=== PATIENT | male | born 1955 | race Caucasian/White ===

== ENCOUNTER 2020-03-06 06:27 | Outpatient (REF) | payer MEDICARE, SELFPAY ==
[2020-03-06 07:24] LABS: MANUAL DIFF FLAG NO
[2020-03-06 07:25] LABS: Eosinophils Percent Auto 0.6 % (0-4); Hematocrit 43.5 % (42-52); Hemoglobin 14.8 g/dl (14.0-18.0); Imm Gran Abs Auto 0.02 X10*3/uL (0.00-0.03); Imm Gran Pct Auto 0.3 % (0.0-0.4); Lymphocytes Absolute Auto 1.4 X10*3/uL (1.2-4.9); Lymphocytes Percent Auto 19.6 % (20-40); Mean Corpuscular Hemoglobin 31.1 pg (27.0-33.0); Mean Corpuscular Volume 91.4 fL (80-98); Mean Platelet Volume 9.6 fL (9.4-12.4); Monocytes Absolute Auto 0.5 X10*3/uL (0.1-1.2); Monocytes Percent Auto 6.5 % (2-11); Neutrophils Absolute Auto 5.3 X10*3/uL (2.0-8.3); Platelet Count 220 X10*3/uL (160-400); Red Blood Count 4.76 X10*6/uL (4.60-5.80); Red Cell Distribution Width 12.2 % (11.0-16.0); White Blood Count 7.3 X10*3/uL (4.8-10.8)
[2020-03-06 07:48] LABS: Estimated Average Glucose 103 mg/dL; Hemoglobin A1c % 5.2 %
[2020-03-06 07:49] LABS: Alanine Aminotransferase 17 U/L (0-40); Albumin Level 4.1 g/dL (3.5-5.0); Alkaline Phosphatase 76 U/L (39-117); Anion Gap 12 (12-20); Aspartate Amino Transferase 16 U/L (5-37); Bilirubin Total 0.9 mg/dL (0.0-1.0); Blood Urea Nitrogen 17 mg/dL (9-16); Carbon Dioxide 27 mmol/L (22-29); Chloride 101 mmol/L (96-108); Cholesterol 207 mg/dL; Estimated Glomerular Filt Rate > 60; Glucose Fasting 99 mg/dL (60-99); HDL Cholesterol 66 mg/dL; LDL Cholesterol Calculated 126 mg/dl; Potassium 4.3 mmol/l (3.3-5.1); Sodium 136 mmol/L (135-145); Total Protein 6.5 g/dL (6.5-8.0); Triglycerides 77 mg/dL
[2020-03-06 08:09] LABS: Thyroid Stimulating Hormone 0.81 uIU/mL (0.32-4.0)
== END 2020-03-06 06:28 | disposition home or self-care (01) ==
LOC: HO.LAB 06:27
PROVIDERS: PCP Physician Assistant; Visit Provider Physician Assistant
DX: E78.9 Disorder of lipoprotein metabolism, unspecified (principal); I10 Essential (primary) hypertension; R73.09 Other abnormal glucose
CPT/HCPCS: 36415; 80053; 80061; 83036; 84443; 85025

== ENCOUNTER 2020-06-11 09:43 | Outpatient (REF) | payer MEDICARE, SELFPAY ==
[2020-06-11 11:14] LABS: MRSA Nasal PCR NEGATIVE (Negative); SA Nasal PCR NEGATIVE (Negative)
== END 2020-06-11 09:44 | disposition home or self-care (01) ==
LOC: HO.LAB 09:43
PROVIDERS: Visit Provider Physician Assistant
DX: Z01.818 Encounter for other preprocedural examination (principal)
CPT/HCPCS: 87640; 87641

== ENCOUNTER 2020-09-12 08:26 | Outpatient (REF) | payer MEDICARE, SELFPAY ==
[2020-09-12 10:07] LABS: MANUAL DIFF FLAG NO
[2020-09-12 10:17] LABS: Basophils Percent Auto 0.2 % (0-2); Eosinophils Percent Auto 0.5 % (0-4); Hematocrit 43.9 % (42-52); Hemoglobin 14.2 g/dl (14.0-18.0); Imm Gran Abs Auto 0.03 X10*3/uL (0.00-0.03); Imm Gran Pct Auto 0.5 % (0.0-0.4); Lymphocytes Absolute Auto 1.4 X10*3/uL (1.2-4.9); Lymphocytes Percent Auto 21.6 % (20-40); Mean Corpuscular HGB Conc 32.3 g/dl (31.0-36.0); Mean Corpuscular Hemoglobin 30.4 pg (27.0-33.0); Monocytes Absolute Auto 0.5 X10*3/uL (0.1-1.2); Monocytes Percent Auto 7.2 % (2-11); Neutrophils Absolute Auto 4.7 X10*3/uL (2.0-8.3); Platelet Count 216 X10*3/uL (160-400); Red Blood Count 4.67 X10*6/uL (4.60-5.80); Red Cell Distribution Width 12.5 % (11.0-16.0); White Blood Count 6.6 X10*3/uL (4.8-10.8)
[2020-09-12 10:23] LABS: Estimated Average Glucose 97 mg/dL
[2020-09-12 10:53] LABS: Alanine Aminotransferase 17 U/L (0-40); Albumin Level 4.2 g/dL (3.5-5.0); Alkaline Phosphatase 86 U/L (39-117); Anion Gap 14 (12-20); Aspartate Amino Transferase 20 U/L (5-37); Bilirubin Total 0.7 mg/dL (0.0-1.0); Blood Urea Nitrogen 18 mg/dL (9-16); Calcium 9.2 mg/dL (8.4-10.2); Carbon Dioxide 25 mmol/L (22-29); Chloride 102 mmol/L (96-108); Cholesterol 222 mg/dL; Estimated Glomerular Filt Rate > 60; Glucose Fasting 96 mg/dL (60-99); HDL Cholesterol 74 mg/dL; Iron 99 mcg/dL (45-160); LDL Cholesterol Calculated 135 mg/dl; Percent Iron Saturation 30 % (15-50); Potassium 4.5 mmol/L (3.3-5.1); Sodium 136 mmol/L (135-145); Total Iron Binding Capacity 329 mcg/dL (228-428); Total Protein 6.7 g/dL (6.5-8.0); Triglycerides 67 mg/dL; Unsaturated Iron Binding 230 ug/dL
[2020-09-12 10:55] LABS: Creatinine Urine 87.89 mg/dL; Microalbum/Creatinine Ratio Ur 21.6 ug/mg cr
[2020-09-12 11:16] LABS: Prostate Specific Antigen Scr 1.04 ng/mL (<0.05-4.0); TSH reflex Free T4 0.44 uIU/mL (0.32-4.0)
[2020-09-12 11:26] LABS: Folate 8.6 ng/mL (> or = 4.0); Vitamin B12 306 pg/mL (200-900)
== END 2020-09-12 08:27 | disposition home or self-care (01) ==
LOC: HO.LAB 08:26
PROVIDERS: PCP Physician Assistant; Visit Provider Physician Assistant
DX: Z12.5 Encounter for screening for malignant neoplasm of prostate (principal); I10 Essential (primary) hypertension; R53.83 Other fatigue; E78.2 Mixed hyperlipidemia; D50.9 Iron deficiency anemia, unspecified
CPT/HCPCS: 36415; 80053; 80061; 82043; 82607; 82746; 83036; 83540; 84153; 84443; 85025

== ENCOUNTER 2021-04-12 07:13 | Outpatient (REF) | payer MEDICARE, SELFPAY ==
[2021-04-12 08:19] LABS: Hematocrit 47.4 % (42.0-52.0); Hemoglobin 15.6 g/dl (14.0-18.0); Mean Corpuscular HGB Conc 32.9 g/dl (31.0-36.0); Mean Corpuscular Hemoglobin 30.7 pg (27.0-33.0); Mean Corpuscular Volume 93.3 fL (80.0-98.0); Platelet Count 232 X10*3/uL (160-400); Red Blood Count 5.08 X10*6/uL (4.60-5.80); Red Cell Distribution Width 12.1 % (11.0-16.0); White Blood Count 7.8 X10*3/uL (4.8-10.8)
[2021-04-12 08:43] LABS: Alanine Aminotransferase 14 U/L (0-40); Alkaline Phosphatase 82 U/L (39-117); Anion Gap 10 (12-20); Aspartate Amino Transferase 18 U/L (5-37); Bilirubin Total 0.8 mg/dL (0.0-1.0); Blood Urea Nitrogen 20 mg/dL (9-16); Calcium 9.4 mg/dL (8.4-10.2); Carbon Dioxide 30 mmol/L (22-29); Chloride 99 mmol/L (96-108); Cholesterol 197 mg/dL; Estimated Glomerular Filt Rate > 60; Glucose Fasting 108 mg/dL (60-99); Potassium 4.7 mmol/L (3.3-5.1); Sodium 134 mmol/L (135-145); Total Protein 6.8 g/dL (6.5-8.0); Triglycerides 60 mg/dL
[2021-04-12 08:49] LABS: HDL Cholesterol 66 mg/dL; LDL Cholesterol Calculated 119 mg/dl
[2021-04-12 09:07] LABS: Prostate Specific Antigen Scr 1.03 ng/mL (<0.05-4.0)
== END 2021-04-12 07:14 | disposition home or self-care (01) ==
LOC: HO.LAB 07:13
PROVIDERS: PCP Physician Assistant; Visit Provider Physician Assistant
DX: E78.2 Mixed hyperlipidemia (principal); I10 Essential (primary) hypertension; Z12.5 Encounter for screening for malignant neoplasm of prostate
CPT/HCPCS: 36415; 80053; 80061; 84153; 85027

== ENCOUNTER 2021-10-18 09:30 | Outpatient (REF) | payer MEDICARE, SELFPAY ==
[2021-10-18 09:59] LABS: Hematocrit 42.2 % (42.0-52.0); Mean Corpuscular HGB Conc 33.2 g/dl (31.0-36.0); Mean Corpuscular Hemoglobin 29.6 pg (27.0-33.0); Mean Corpuscular Volume 89.2 fL (80.0-98.0); Mean Platelet Volume 9.4 fL (9.4-12.4); Platelet Count 210 X10*3/uL (160-400); Red Blood Count 4.73 X10*6/uL (4.60-5.80); Red Cell Distribution Width 12.6 % (11.0-16.0); White Blood Count 7.6 X10*3/uL (4.8-10.8)
[2021-10-18 10:23] LABS: Alanine Aminotransferase 12 U/L (0-40); Albumin Level 4.2 g/dL (3.5-5.0); Alkaline Phosphatase 80 U/L (39-117); Anion Gap 14 (12-20); Aspartate Amino Transferase 16 U/L (5-37); Bilirubin Total 0.6 mg/dL (0.0-1.0); Blood Urea Nitrogen 20 mg/dL (9-16); Carbon Dioxide 25 mmol/L (22-29); Chloride 103 mmol/L (96-108); Cholesterol 191 mg/dL; Estimated Glomerular Filt Rate > 60; Glucose Fasting 104 mg/dL (60-99); HDL Cholesterol 60 mg/dL; LDL Cholesterol Calculated 119 mg/dl; Potassium 4.8 mmol/L (3.3-5.1); Sodium 137 mmol/L (135-145); Total Protein 6.9 g/dL (6.5-8.0); Triglycerides 62 mg/dL
[2021-10-18 10:31] LABS: Estimated Average Glucose 97 mg/dL
[2021-10-18 11:50] LABS: Creatinine Urine 266.45 mg/dL; Microalbum/Creatinine Ratio Ur 8.6 ug/mg cr
== END 2021-10-18 09:31 | disposition home or self-care (01) ==
LOC: HO.LAB 09:30
PROVIDERS: PCP Physician Assistant; Visit Provider Physician Assistant
DX: I10 Essential (primary) hypertension (principal); E78.2 Mixed hyperlipidemia; N40.1 Benign prostatic hyperplasia with lower urinary tract symptoms; R35.1 Nocturia; Z12.5 Encounter for screening for malignant neoplasm of prostate
CPT/HCPCS: 36415; 80053; 80061; 82043; 83036; 84153; 85027

== ENCOUNTER 2021-11-21 08:50 | Outpatient (REF) | payer MEDICARE, SELFPAY ==
--- NOTE | ~2021-11-21 | US_ITS ---
EXAMINATION: US EXTRACRANIAL CAROTID DUPLEX, BILATERAL CLINICAL INFORMATION: Left carotid bruit. Hypertension. Hyperlipidemia. COMPARISON: None TECHNIQUE: Real-time ultrasound and Doppler techniques (integrating B-mode 2-D vascular images, Doppler spectral analysis and color-flow Doppler imaging) were utilized to interrogate the extracranial carotid arteries, the vertebral arteries and proximal subclavian arteries bilaterally. The degree of stenosis is determined by criteria similar to NASCET. FINDINGS: Right Side: 1. There is mild atherosclerotic plaque seen in the bifurcation/proximal ICA region. 2. The common carotid artery PSV proximally is 110 cm/s and distally 90 cm/s. 3. The proximal internal carotid artery velocities are 86 cm/s systolic and 19 cm/s diastolic. 4. The proximal external carotid artery PSV is 127 cm/s. 5. The vertebral artery shows antegrade flow. 6. The subclavian artery waveforms are normal. Left Side: 1. There is mild atherosclerotic plaque seen in the bifurcation/proximal ICA region. 2. The common carotid artery PSV proximally is 127 cm/s and distally 79 cm/s. 3. The proximal internal carotid artery velocities are 79 cm/s systolic and 20 cm/s diastolic. 4. The proximal external carotid artery PSV is 75 cm/s. 5. The vertebral artery shows antegrade flow. 6. The subclavian artery waveforms are normal. US/US carotid duplex BI IMPRESSION: 1. RIGHT: Minimal, non-hemodynamically significant stenosis of the proximal right internal carotid artery corresponding to a 0-49% stenosis by velocity criteria. 2. LEFT: Minimal, non-hemodynamically significant stenosis of the proximal left internal carotid artery corresponding to a 0-49% stenosis by velocity criteria.
== END 2021-11-21 08:51 | disposition home or self-care (01) ==
LOC: HO.HMGCX 08:50
PROVIDERS: PCP Physician Assistant; Visit Provider Physician Assistant
DX: R09.89 Other specified symptoms and signs involving the circulatory and respiratory systems (principal)
CPT/HCPCS: 93880

== ENCOUNTER 2022-01-02 10:27 | Outpatient (REF) | payer MEDICARE, SELFPAY ==
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
== END 2022-01-02 10:28 | disposition home or self-care (01) ==
LOC: HO.SH 10:27
PROVIDERS: Visit Provider Physician Assistant
DX: Z01.118 Encounter for examination of ears and hearing with other abnormal findings (principal); H90.3 Sensorineural hearing loss, bilateral
CPT/HCPCS: 92557; 92570

== ENCOUNTER 2022-04-18 07:20 | Outpatient (REF) | payer MEDICARE, SELFPAY ==
[2022-04-18 08:27] LABS: Hematocrit 42.5 % (42.0-52.0); Hemoglobin 13.8 g/dl (14.0-18.0); Mean Corpuscular HGB Conc 32.5 g/dl (31.0-36.0); Mean Corpuscular Hemoglobin 29.9 pg (27.0-33.0); Mean Platelet Volume 10.1 fL (9.4-12.4); Platelet Count 282 X10*3/uL (160-400); Red Blood Count 4.62 X10*6/uL (4.60-5.80); Red Cell Distribution Width 13.2 % (11.0-16.0); White Blood Count 7.6 X10*3/uL (4.8-10.8)
[2022-04-18 09:00] LABS: Creatinine Urine 138.98 mg/dL; Microalbum/Creatinine Ratio Ur 10.7 ug/mg cr
[2022-04-18 09:07] LABS: Alanine Aminotransferase 14 U/L (0-40); Albumin Level 3.9 g/dL (3.5-5.0); Alkaline Phosphatase 79 U/L (39-117); Anion Gap 11 (12-20); Aspartate Amino Transferase 15 U/L (5-37); Bilirubin Total 0.6 mg/dL (0.0-1.0); Blood Urea Nitrogen 20 mg/dL (9-16); Carbon Dioxide 28 mmol/L (22-29); Chloride 104 mmol/L (96-108); Cholesterol 231 mg/dL; Estimated Glomerular Filt Rate > 60; Glucose Fasting 96 mg/dL (60-99); HDL Cholesterol 60 mg/dL; LDL Cholesterol Calculated 154 mg/dl; Potassium 4.3 mmol/L (3.3-5.1); Sodium 139 mmol/L (135-145); Total Protein 6.7 g/dL (6.5-8.0); Triglycerides 86 mg/dL
[2022-04-18 09:20] LABS: Prostate Specific Antigen Scr 1.72 ng/mL (<0.05-4.0); TSH reflex Free T4 1.19 uIU/mL (0.32-4.0)
== END 2022-04-18 07:21 | disposition home or self-care (01) ==
LOC: HO.LAB 07:20
PROVIDERS: PCP Physician Assistant; Visit Provider Physician Assistant
DX: I10 Essential (primary) hypertension (principal); E78.2 Mixed hyperlipidemia; N40.1 Benign prostatic hyperplasia with lower urinary tract symptoms; R35.1 Nocturia; Z12.5 Encounter for screening for malignant neoplasm of prostate
CPT/HCPCS: 36415; 80053; 80061; 82043; 84153; 84443; 85027

== ENCOUNTER 2022-11-28 06:51 | Outpatient (REF) | payer MEDICARE, SELFPAY ==
[2022-11-28 07:42] LABS: Hematocrit 45.5 % (42.0-52.0); Hemoglobin 14.8 g/dl (14.0-18.0); Mean Corpuscular HGB Conc 32.5 g/dl (31.0-36.0); Mean Corpuscular Hemoglobin 30.1 pg (27.0-33.0); Mean Corpuscular Volume 92.7 fL (80.0-98.0); Mean Platelet Volume 10.2 fL (9.4-12.4); Platelet Count 213 X10*3/uL (160-400); Red Blood Count 4.91 X10*6/uL (4.60-5.80); Red Cell Distribution Width 11.5 % (11.0-16.0); White Blood Count 6.2 X10*3/uL (4.8-10.8)
[2022-11-28 07:58] LABS: Alanine Aminotransferase 15 U/L (0-40); Albumin Level 4.1 g/dL (3.5-5.0); Alkaline Phosphatase 74 U/L (39-117); Anion Gap 14 (12-20); Aspartate Amino Transferase 20 U/L (5-37); Bilirubin Total 0.7 mg/dL (0.0-1.0); Blood Urea Nitrogen 16 mg/dL (9-16); Calcium 9.5 mg/dL (8.4-10.2); Carbon Dioxide 23 mmol/L (22-29); Chloride 105 mmol/L (96-108); Cholesterol 193 mg/dL (<200); Estimated Glomerular Filt Rate > 60; Glucose Fasting 101 mg/dL (60-99); HDL Cholesterol 68 mg/dL (>40); LDL Cholesterol Calculated 110 mg/dL (<100); Potassium 4.2 mmol/L (3.3-5.1); Sodium 138 mmol/L (135-145); Total Protein 6.9 g/dL (6.5-8.0); Triglycerides 79 mg/dL (<150)
== END 2022-11-28 06:52 | disposition home or self-care (01) ==
LOC: HO.LAB 06:51
PROVIDERS: PCP Physician Assistant; Visit Provider Physician Assistant
DX: I10 Essential (primary) hypertension (principal); E78.2 Mixed hyperlipidemia
CPT/HCPCS: 36415; 80053; 80061; 85027

== ENCOUNTER 2022-12-03 09:07 | Outpatient (AMB) | payer MEDICARE, SELFPAY ==
--- NOTE | 2022-12-03 09:08 | MHC.PC.OV ---
Vital Signs 12/03/22 09:10 Height 5 ft 7 in Weight 170 lb 8 oz BMI 26.7 BP 120/70 Blood Pressure Location Lt brachial Position Sitting Pulse 78 Pulse Source Pulse Oximeter Pulse Oximetry (%) 98 Oxygen Delivery Method Room Air Intake Visit Reasons: Annual Exam Intake Note: Patient is here today for a physical. 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: Not Required per policy Accompanied by: Self / Same As Patient Allergies ROMAIN INHIBITORS Allergy (Unknown, Uncoded 12/03/22 09:44) COUGH Medication List - Last Reconciled 12/03/22 by Brenden Ledesma PA-C losartan 25 mg PO DAILY sildenafil 100 mg PO DAILY 10 days Tobacco use date assessed: 12/03/22 Fall risk assessment: No Falls in past year Last assessed Fall Risk: 12/03/22 Dental Screening Dental Screen Date: 12/03/22 Did you have a dental visit in the last 12 months?: Yes Did you have a dental problem in the last 6 months where you did not have access to dental care?: No Was dental information given to patient?: Patient has dentist HPI Annual Exam HPI Details Sameer is a 67 y/o M here today for follow-up visit ? Pmhx HTN , HLD, overweight, knee osteoarthritis Concerns--> has upcoming left shoulder rotator cuff surgery December 24. ? .. ? HTN: Does monitor his blood pressure at home, Denies any headaches or CP as of late. Today BP acceptable. Has noted some weight gain and patient promises to work on getting more physically active and decreasing weight. ? .. ? Borderline hypercholesterolemia:? Most recent lipid panel showing much improved total cholesterol and LDL. Has been working on reducing his high cholesterol foods in being more physically active. ? Colonoscopy: done in 2016- repeat 10 years Vaccines: Up-to-date with COVID vaccine, pneumonia vaccine she shingles vaccine and tetanus vaccine Laboratory Tests 04/18/22 11/28/22 11/28/22 07:24 07:03 07:03 Hgb 14.8 Creatinine 0.98 Fasting Glucose 101 H Cholesterol 231 193 LDL Cholesterol, C alc 154 110 H PFSH Surgical History History of bilateral cataract extraction History of knee surgery History of thumb surgery Family History Father Esophageal cancer Mother Breast cancer Social History (Updated 12/03/22 @ 09:48 by Brenden Ledesma PA-C) Housing: House Alcohol intake: current Alcohol intake frequency: a few times a week Alcohol type: beer Patient Tobacco Use Status: Never used Tobacco e-Cigarette/Vaping Use: Never Used Second Hand Smoke Exposure: No service: No Current occupational status: employed and retired 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 Sonny Sorensen, Cris Salazar, Bill Billingsley and colleagues, with an educational olga from [employer]. Review of Systems Const Denies body aches, Denies chills, Denies excessive sweating, Denies fatigue, Denies fever(s) and Denies headache(s) Eyes Denies blurry vision ENT Denies dysphagia, Denies vertigo, Denies dizziness, Denies headache(s), Denies hearing loss and Denies tinnitus Card Denies chest pain, Denies chest pain with activity, Denies syncope, Denies irregular heart rhythm and Denies dyspnea Resp Denies chest congestion, Denies cough, Denies hemoptysis, Denies dyspnea and Denies wheezing GI Denies abdominal pain, Denies melena, Denies hematochezia, Denies coffee ground emesis, Denies dysphagia, Denies diarrhea, Denies nausea and Denies vomiting Denies difficulty urinating, Denies dysuria, Denies urinary frequency, Denies urinary hesitancy and Denies urinary urgency Musc Denies arthralgias, Denies limited range of motion, Denies muscle cramps and Denies muscle weakness Skin/Breast Denies rash and Denies skin ulcer Neuro Denies Abnormal speech present, Denies confusion, Denies vertigo, Denies dizziness, Denies syncope, Denies headache(s), Denies memory loss and Denies seizure-like activity Psych Denies anxiety, Denies confusion, Denies depression, Denies memory loss, Denies panic attacks and Denies paranoia Endo Denies excessive sweating, Denies fatigue, Denies flushing, Denies polydipsia and Denies polyuria Aller/Immun Denies wheezing Physical exam (Primary Care) Vital Signs: Last Vital Signs Pulse 78 12/03/22 09:10 BP 120/70 12/03/22 09:10 Pulse Ox 98 12/03/22 09:10 Oxygen Delivery Method Room Air 12/03/22 09:10 BMI result Body Mass Index 26.7 Tobacco/Smoking Status: Tobacco use Status Tobacco use date assessed 12/03/22 12/03/22 09:13 Patient Tobacco Use Status Never used Tobacco 12/03/22 09:13 e-Cigarette/Vaping Use Never Used 12/03/22 09:13 Thrive Assessment: Date of Thrive Assessment Date Thrive assessed 06/11/22 12/03/22 09:13 Const General: cooperative, comfortable, no acute distress, alert and awake; No confusion Orientation/consciousness: oriented to person, oriented to place, patient oriented x3 and No confusion HENMT Head: Yes normocephalic Ears: external ears normal and TM's normal bilaterally Face and sinus: No sinus tenderness Mouth: Normal oral and palatal mucosa present and tongue normal Teeth and gingiva: dentition normal and gingiva normal Throat: Yes posterior oropharynx normal, Yes tonsils normal and Yes uvula midline Eyes Conjunctivae: conjunctivae normal Sclerae: sclerae normal Pupils: Equal, round and reactive pupils present EOM: EOMs intact bilaterally Direct Ophthalmoscopy: No no photophobia Neck Neck: Yes no lymphadenopathy, No tender and Yes no JVD Thyroid: Thyroid normal Carotids: no bruits Chest Chest palpation & inspection: no tenderness Resp Effort & Inspection: normal respiratory effort, no audible wheezes, not labored and no stridor Auscultation: no crackles, no rales, no rhonchi and no wheezes Cardio Jugular venous distension: no JVD Rate: regular rate, not bradycardic and not tachycardic Rhythm: regular rhythm Bruits: no carotid bruits Peripheral pulses: Peripheral pulses 2+ throughout GI Inspection: Yes normal to inspection, No abdominal wall ecchymosis and No visible herniation Palpation (GI): Soft to palpation, nontender, no guarding, not rigid and No hepatosplenomegaly present Auscultation: normoactive bowel sounds General: Yes no CVA tenderness Back/Spine/Pelvis Back: no CVA tenderness and No back tenderness Cervical Spine: cervical ROM normal Thoracic/Lumbar Spine: thoracic and lumbar spine normal to inspection, straight leg raise negative bilaterally, No thoraco-lumbar ROM limited and No lumbar spinal tenderness Skin Lesions: no lesions Rashes: no rashes Wounds: no wounds Neuro General: oriented to person, oriented to place, patient oriented x3, CN's II-XI intact bilaterally and No confusion Cranial nerves: Yes Equal, round and reactive pupils present and Yes Normal accommodation reflex present Cognition (Neuro): normal cognition Speech: No Abnormal speech present Gait exam (Neuro): Normal gait present Motor exam (neuro): 5/5 motor strength present throughout Extrem Right upper extremity: full ROM; no cyanosis Left upper extremity: full ROM; no cyanosis Right lower extremity: no edema Left lower extremity: no edema Psych Appearance: grossly normal Mental Status: mental status grossly normal Affect: normal affect Attitude: cooperative Thought process: Normal thought process present Assessment and Plan Assessment & Plan (1) Annual physical exam: Code(s): Z00.00 - Encounter for general adult medical examination without abnormal findings (2) HTN (hypertension): Code(s): I10 - Essential (primary) hypertension Qualifiers: Hypertension type: essential hypertension Qualified Code(s): I10 - Essential (primary) hypertension Plan: Patient's blood pressure acceptable today in office. Will continues current dose of losartan with goal blood pressure to remain below 140/90 (3) HLD (hyperlipidemia): Code(s): E78.5 - Hyperlipidemia, unspecified Qualifiers: Hyperlipidemia type: mixed hyperlipidemia Qualified Code(s): E78.2 - Mixed hyperlipidemia Plan: Patient's most recent lipid panel much improved she showing appropriate total cholesterol and LDL. He will continue working on lifestyle modifications of his diet to reduce his cholesterol. (4) Biceps tendinopathy: Code(s): M67.929 - Unspecified disorder of synovium and tendon, unspecified upper arm Qualifiers: Laterality: right Qualified Code(s): M67.921 - Unspecified disorder of synovium and tendon, right upper arm Plan: As per HPI patient is due for left shoulder tendon repair in November 2022. Orders: Orders Comprehensive [place]. Panel Fast 6 Months I10 - Essential (primary) hypertension Lipid Panel 6 Months E78.2 - Mixed hyperlipidemia Prostate Specific Antigen Scr 6 Months E78.2 - Mixed hyperlipidemia, Z12.5 - Encounter for screening for malignant neoplasm of prostate Microalbumin, Random (w Creat) 6 Months I10 - Essential (primary) hypertension Complete Blood Count no Diff 6 Months E78.2 - Mixed hyperlipidemia Medications: Refilled sildenafil administer 30 minutes to 4 hours before activity 100 mg PO DAILY 10 days 10 tabs 1RF sexual activity N52.8 - Other male erectile dysfunction Coding Level of Care Code Est Pt Prev Care >65y(16734) Diagnoses Annual physical exam Z00.00 HTN (hypertension) I10 Hypertension type: essential hypertension HLD (hyperlipidemia) E78.2 Hyperlipidemia type: mixed hyperlipidemia Biceps tendinopathy M67.921 Laterality: right
[2022-12-03 09:10] VITALS: BP 120/70; PULSE 78; O2SAT 98; BMI 26.7
== END 2022-12-03 10:00 | disposition home or self-care (01) ==
PROVIDERS: PCP Physician Assistant; Visit Provider Physician Assistant
DX: Z00.00 Encounter for general adult medical examination without abnormal findings (principal); I10 Essential (primary) hypertension; M67.921 Unspecified disorder of synovium and tendon, right upper arm
CPT/HCPCS: 99397

== ENCOUNTER 2023-05-27 08:25 | Outpatient (REF) | payer MEDICARE, SELFPAY ==
[2023-05-27 09:16] LABS: Hematocrit 44.6 % (42.0-52.0); Hemoglobin 14.6 g/dl (14.0-18.0); Mean Corpuscular HGB Conc 32.7 g/dl (31.0-36.0); Mean Corpuscular Hemoglobin 29.9 pg (27.0-33.0); Mean Corpuscular Volume 91.4 fL (80.0-98.0); Mean Platelet Volume 10.1 fL (9.4-12.4); Platelet Count 193 X10*3/uL (160-400); Red Blood Count 4.88 X10*6/uL (4.60-5.80); White Blood Count 7.2 X10*3/uL (4.8-10.8)
[2023-05-27 09:48] LABS: Alanine Aminotransferase 14 U/L (0-40); Alkaline Phosphatase 81 U/L (39-117); Anion Gap 13 (12-20); Aspartate Amino Transferase 18 U/L (5-37); Bilirubin Total 0.4 mg/dL (0.0-1.0); Blood Urea Nitrogen 22 mg/dL (9-16); Calcium 9.2 mg/dL (8.4-10.2); Carbon Dioxide 26 mmol/L (22-29); Chloride 105 mmol/L (96-108); Cholesterol 194 mg/dL (<200); Estimated Glomerular Filt Rate > 60; Glucose Fasting 100 mg/dL (60-99); HDL Cholesterol 54 mg/dL (>40); LDL Cholesterol Calculated 125 mg/dL (<100); Potassium 4.4 mmol/L (3.3-5.1); Sodium 140 mmol/L (135-145); Total Protein 6.9 g/dL (6.5-8.0); Triglycerides 77 mg/dL (<150)
[2023-05-27 09:50] LABS: Creatinine Urine 471.57 mg/dL; Microalbum/Creatinine Ratio Ur 12.2 ug/mg cr (<30)
== END 2023-05-27 08:26 | disposition home or self-care (01) ==
LOC: HO.LAB 08:25
PROVIDERS: PCP Physician Assistant; Visit Provider Physician Assistant
DX: E78.2 Mixed hyperlipidemia (principal); I10 Essential (primary) hypertension; Z12.5 Encounter for screening for malignant neoplasm of prostate
CPT/HCPCS: 36415; 80053; 80061; 82043; 82570; 84153; 85027

== ENCOUNTER 2023-06-03 07:35 | Outpatient (AMB) | payer MEDICARE, SELFPAY ==
[2023-06-03 07:49] VITALS: BP 120/78; BMI 26.5
--- NOTE | 2023-06-03 07:49 | A.OFFPC_ITS ---
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 Accompanied by: Self / Same As Patient Allergies ROMAIN INHIBITORS Allergy (Unknown, Uncoded 06/03/23 07:59) COUGH Medication List - Last Reconciled 06/03/23 by Brenden Ledesma PA-C losartan 25 mg PO DAILY sildenafil 100 mg PO DAILY 10 days Tobacco use date assessed: 06/03/23 Fall risk assessment: No Falls in past year Last assessed Fall Risk: 06/03/23 Dental Screening Dental Screen Date: 06/03/23 Did you have a dental visit in the last 12 months?: Yes Did you have a dental problem in the last 6 months where you did not have access to dental care?: No Was dental information given to patient?: Patient has dentist HPI 6mth f/u HPI Details Sameer is a 67 y/o M here today for follow-up visit ? Pmhx HTN , HLD, overweight. Concerns--> has been recovering left rotator cuff surgery. Has regained a lot of strength and range of motion. ? .. ? HTN: Does monitor his blood pressure at home, Denies any headaches or CP as of late. Today BP acceptable. He is still trying to get his weight down to the mid 160s. Continues to walk 3-4 miles a day. ? .. ? Borderline hypercholesterolemia:? Most recent lipid panel showing acceptable total cholesterol and LDL. Has been working on reducing his high cholesterol foods in being more physically active. Laboratory Tests 04/18/22 11/28/22 05/27/23 07:24 07:03 08:42 Hgb 14.6 Creatinine 1.17 Fasting Glucose 100 H LDL Cholesterol, C alc 110 H 125 H PSA Screen 1.72 Urine Microalbumin 05/27/23 05/27/23 08:42 08:42 Hgb Creatinine Fasting Glucose LDL Cholesterol, C alc PSA Screen 1.50 Urine Microalbumin 58.0 PFSH Surgical History History of rotator cuff surgery History of knee surgery History of bilateral cataract extraction History of thumb surgery Family History Father Esophageal cancer Mother Breast cancer Social History Housing: House Alcohol intake: current Alcohol intake frequency: a few times a week Alcohol type: beer Patient Tobacco Use Status: Never used Tobacco e-Cigarette/Vaping Use: Never Used Second Hand Smoke Exposure: No service: No Current occupational status: employed and retired 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 1. Little interest or pleasure in doing things: not at all 2. Feeling down, depressed, or hopeless: not at all 3. Trouble falling or staying asleep, or sleeping too much: not at all 4. Feeling tired or having little energy: not at all 5. Poor appetite or overeating: not at all 6. Feeling bad about yourself - or that you are a failure or have let yourself or your family down: not at all 7. Trouble concentrating on things, such as reading the newspaper or watching television: not at all 8. Moving or speaking so slowly that other people could have noticed. Or the opposite - being so fidgety or restless that you have been moving around a lot more than usual: not at all 9. Thoughts that you would be better off or of hurting yourself in some way: not at all Total score: 0 Depression Screening Interpretation: Negative Depression Screening Done: Yes 17908 - PHQ-9 Billing: Yes Source: Developed by Drs. Sonny Sorensen, Cris Salazar, Bill Billingsley and colleagues, with an educational olga from [employer]. Thrive Questionnaire Date Thrive assessed: 06/03/23 I am a: Patient What is your living situation today?: I have a steady place to live Within the past 12 months, did the food you bought not last and you didn't have the money to get more?: Never true Within the past 12 months, did you worry whether your food would run out before you got money to buy more?: Never true Do you have trouble paying for medicines?: No Do you have trouble getting transportation to medical appointments?: No Do you have trouble paying your heating and electricity bill?: No Do you have trouble taking care of your child, family member or friend?: No Do you have trouble with day-to-day activities such as bathing, preparing meals, shopping, managing finances, etc.?: No Are you currently unemployed and looking for a job?: No Are you interested in more education?: No Please select the resources that you would like help with: None Currently or been in a relationship where the following occur: no concerns reported THRIVE Score: 0 AUDIT C Alcohol Use Questionnaire (AUDIT-C) 1. How often do you have a drink containing alcohol?: 2-3 times a week 2. How many drinks containing alcohol do you have on a typical day when you are drinking?: 1 or 2 3. How often do you have six or more drinks on one occasion?: Never Total Score: 3 Score Reviewed/Action Taken: Yes BATSHEVA-7 AMB Questionnaire BATSHEVA-7 Date BATSHEVA - 7 assessed: 06/03/23 Feeling nervous, anxious, or on edge: 0 = Not at all Not being able to stop or control worryin = Not at all Worrying too much about different things: 0 = Not at all Trouble relaxin = Not at all Being so restless that it is hard to sit still: 0 = Not at all Becoming easily annoyed or irritable: 0 = Not at all Feeling afraid as if something awful might happen: 0 = Not at all Total BATSHEVA-7 score (0-4 normal; 5-9 mild; 10-14 moderate; 15-21 severe): 0 Source: Developed by Drs. Sonny Sorensen, Cris Salazar, Bill Billingsley and colleagues, with an educational olga from [employer]. BATSHEVA-7 Assessment Billing BATSHEVA-7 Assessment Tool: BATSHEVA-7 Assessment 40610 Review of Systems Const Denies headache(s) Eyes Denies loss of vision ENT Denies vertigo, Denies dizziness, Denies headache(s) and Denies sore throat Card Denies chest pain, Denies leg edema and Denies lightheadedness Resp Denies cough, Denies hemoptysis and Denies wheezing GI Denies abdominal pain, Denies melena, Denies constipation, Denies diarrhea and Denies vomiting Denies dysuria, Denies urinary frequency and Denies urinary urgency Musc Denies arthralgias, Denies joint swelling, Denies numbness and Denies tingling Neuro Denies Abnormal speech present, Denies behavioral changes, Denies vertigo, Denies dizziness, Denies headache(s), Denies loss of vision, Denies memory loss, Denies numbness and Denies tingling Psych Denies anxiety, Denies behavioral changes, Denies depression, Denies memory loss and Denies panic attacks Cameron/Lymph Denies easy bleeding and Denies easy bruising Aller/Immun Denies wheezing Physical exam (Primary Care) Vital Signs: Last Vital Signs BP 120/78 06/03/23 07:49 BMI result Body Mass Index 26.5 Tobacco/Smoking Status: Tobacco use Status Tobacco use date assessed 06/03/23 06/03/23 07:56 Patient Tobacco Use Status Never used Tobacco 06/03/23 07:56 e-Cigarette/Vaping Use Never Used 06/03/23 07:56 PHQ-9: PHQ-9 Score PHQ-9: Total score 0 06/03/23 08:15 Depression Screening Interpretation: Negative Thrive Assessment: Date of Thrive Assessment Date Thrive assessed 06/03/23 06/03/23 07:56 Currently or been in a relationship where the following occur: no concerns reported Const General: healthy appearing, no acute distress, alert and awake Nutritional Appearance: well nourished Orientation/consciousness: oriented to person, oriented to place and oriented to time HENMT Ears: TM's normal bilaterally General nose exam: Normal nasal mucous membranes and turbinates present Eyes Conjunctivae: conjunctivae normal Sclerae: sclerae normal Pupils: Equal, round and reactive pupils present Neck Neck: Yes no lymphadenopathy and Yes no JVD Thyroid: Thyroid normal Carotids: no bruits Resp Effort & Inspection: normal respiratory effort and not tachypneic Auscultation: no crackles, no rales, no rhonchi and no wheezes Cardio Rate: regular rate Rhythm: regular rhythm Heart sounds: no murmurs and normal S1 and S2 GI Palpation (GI): Soft to palpation, nontender, no hepatomegaly and no splenome jenny Auscultation: normal bowel sounds Skin General skin exam: no rashes or lesions noted and dry skin Neuro General: oriented to person, oriented to place and oriented to time Cranial nerves: Yes Equal, round and reactive pupils present Speech: No Abnormal speech present Gait exam (Neuro): Normal gait present Motor exam (neuro): no tremor noted Extrem Right upper extremity: full ROM Left upper extremity: full ROM Right lower extremity: full ROM; no edema Left lower extremity: full ROM; no edema Psych Mental Status: mental status grossly normal Speech and movement: Normal speech and movement present Affect: normal affect Attitude: cooperative Thought process: Normal thought process present Assessment and Plan Assessment & Plan (1) HTN (hypertension): Code(s): I10 - Essential (primary) hypertension Qualifiers: Hypertension type: essential hypertension Qualified Code(s): I10 - Essential (primary) hypertension Plan: Patient's blood pressure acceptable today in office. Will continues current dose of losartan with goal blood pressure to remain below 140/90 Noted slight microalbuminuria. Will recheck in 6 months. (2) HLD (hyperlipidemia): Code(s): E78.5 - Hyperlipidemia, unspecified Qualifiers: Hyperlipidemia type: mixed hyperlipidemia Qualified Code(s): E78.2 - Mixed hyperlipidemia Plan: Patient's most recent lipid panel much improved she showing appropriate total cholesterol and LDL. He will continue working on lifestyle modifications of his diet to reduce his cholesterol. (3) Microalbuminuria: Code(s): R80.9 - Proteinuria, unspecified Plan: Recent microalbuminuria noted to be elevated. Will recheck in 6 months. Advised to monitor blood pressure Orders: Orders Microalbumin, Random (w Creat) 6 Months R80.9 - Proteinuria, unspecified Complete Blood Count no Diff 6 Months I10 - Essential (primary) hypertension Lipid Panel 6 Months E78.2 - Mixed hyperlipidemia Comprehensive [place]. Panel Fast 6 Months I10 - Essential (primary) hypertension Coding Level of Care Code Est Pt Level 4 (99076) Diagnoses Essential hypertension I10 Hypertension type: essential hypertension Mixed hyperlipidemia E78.2 Hyperlipidemia type: mixed hyperlipidemia Microalbuminuria R80.9 Additional Codes BATSHEVA-7 Assessment Billing - BATSHEVA-7 Assessment Tool: BATSHEVA-7 Assessment 10782 ([id number])
== END 2023-06-03 08:14 | disposition home or self-care (01) ==
PROVIDERS: PCP Physician Assistant; Visit Provider Physician Assistant
DX: I10 Essential (primary) hypertension (principal); E78.2 Mixed hyperlipidemia; R80.9 Proteinuria, unspecified
CPT/HCPCS: 99214

== ENCOUNTER 2023-12-03 07:00 | Outpatient (REF) | payer MEDICARE, SELFPAY ==
[2023-12-03 07:57] LABS: Hematocrit 43.1 % (42.0-52.0); Hemoglobin 14.6 g/dl (14.0-18.0); Mean Corpuscular HGB Conc 33.9 g/dl (31.0-36.0); Mean Corpuscular Hemoglobin 30.9 pg (27.0-33.0); Mean Corpuscular Volume 91.3 fL (80.0-98.0); Mean Platelet Volume 9.8 fL (9.4-12.4); Platelet Count 219 X10*3/uL (160-400); Red Blood Count 4.72 X10*6/uL (4.60-5.80); Red Cell Distribution Width 12.3 % (11.0-16.0); White Blood Count 6.7 X10*3/uL (4.8-10.8)
[2023-12-03 08:08] LABS: Alanine Aminotransferase 12 U/L (0-40); Alkaline Phosphatase 72 U/L (39-117); Anion Gap 13 (12-20); Aspartate Amino Transferase 16 U/L (5-37); Bilirubin Total 0.6 mg/dL (0.0-1.0); Blood Urea Nitrogen 15 mg/dL (9-16); Calcium 9.6 mg/dL (8.4-10.2); Carbon Dioxide 26 mmol/L (22-29); Chloride 104 mmol/L (96-108); Cholesterol 207 mg/dL (<200); Estimated Glomerular Filt Rate > 60; Glucose Fasting 106 mg/dL (60-99); HDL Cholesterol 67 mg/dL (>40); LDL Cholesterol Calculated 130 mg/dL (<100); Potassium 4.5 mmol/L (3.3-5.1); Sodium 138 mmol/L (135-145); Total Protein 6.9 g/dL (6.5-8.0); Triglycerides 53 mg/dL (<150)
[2023-12-03 09:13] LABS: Creatinine Urine 125.05 mg/dL; Microalbum/Creatinine Ratio Ur 11.1 ug/mg cr (<30)
== END 2023-12-03 07:01 | disposition home or self-care (01) ==
LOC: HO.LAB 07:00
PROVIDERS: PCP Physician Assistant; Visit Provider Physician Assistant
DX: I10 Essential (primary) hypertension (principal); R80.9 Proteinuria, unspecified; E78.2 Mixed hyperlipidemia
CPT/HCPCS: 36415; 80053; 80061; 82043; 82570; 85027

== ENCOUNTER 2023-12-10 07:44 | Outpatient (AMB) | payer MEDICARE, SELFPAY ==
--- NOTE | 2023-12-10 07:54 | MHC.PC.OV ---
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 Accompanied by: Self / Same As Patient Allergies ROMAIN INHIBITORS Allergy (Unknown, Uncoded 12/10/23 08:06) COUGH Medication List - Last Reconciled 12/10/23 by Brenden Ledesma PA-C losartan 25 mg PO DAILY sildenafil 100 mg PO DAILY 10 days Tobacco use date assessed: 06/03/23 Fall risk assessment: No Falls in past year Last assessed Fall Risk: 12/10/23 Dental Screening Dental Screen Date: 12/10/23 Did you have a dental visit in the last 12 months?: Yes Did you have a dental problem in the last 6 months where you did not have access to dental care?: No Was dental information given to patient?: Patient has dentist HPI PE HPI Details Sameer is a 68 y/o M here today for routine annual physical ? Pmhx HTN , HLD,. 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 .. ? HTN: Does monitor his blood pressure at home, Denies any headaches or CP as of late. Today BP acceptable. He is still trying to get his weight down to the mid 160s. Continues to walk 3-4 miles a day. ? .. ? Borderline hypercholesterolemia:? Most recent lipid panel showing slightly elevated total cholesterol and LDL. He does admit to some dietary indiscretion Has been working on reducing his high cholesterol foods in being more physically active. Colonoscopy: done in 2016- repeat 10 years Vaccines: Up-to-date with COVID vaccine, pneumonia vaccine she shingles vaccine and tetanus vaccine, will be getting flu shot some Laboratory Tests 05/27/23 12/03/23 08:42 07:10 RBC 4.72 Hgb 14.6 Fasting Glucose 106 H Cholesterol 194 207 H LDL Cholesterol, C alc 125 H 130 H PSA Screen 1.50 Urine Microalbumin 58.0 14.0 PFSH Surgical History History of rotator cuff surgery History of knee surgery History of bilateral cataract extraction History of thumb surgery Family History Father Esophageal cancer Mother Breast cancer Social History Housing: House Alcohol intake: current Alcohol intake frequency: a few times a week Alcohol type: beer Patient Tobacco Use Status: Never used Tobacco e-Cigarette/Vaping Use: Never Used Second Hand Smoke Exposure: No service: No Current occupational status: employed and retired 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 1. Little interest or pleasure in doing things: not at all 2. Feeling down, depressed, or hopeless: not at all 3. Trouble falling or staying asleep, or sleeping too much: not at all 4. Feeling tired or having little energy: not at all 5. Poor appetite or overeating: not at all 6. Feeling bad about yourself - or that you are a failure or have let yourself or your family down: not at all 7. Trouble concentrating on things, such as reading the newspaper or watching television: not at all 8. Moving or speaking so slowly that other people could have noticed. Or the opposite - being so fidgety or restless that you have been moving around a lot more than usual: not at all 9. Thoughts that you would be better off or of hurting yourself in some way: not at all Total score: 0 Depression Screening Interpretation: Negative Depression Screening Done: Yes Source: Developed by Drs. Sonny Sorensen, Cris Salazar, Bill Billingsley and colleagues, with an educational olga from [employer]. Thrive Questionnaire Date Thrive assessed: 12/10/23 I am a: Patient What is your living situation today?: I have a steady place to live Within the past 12 months, did the food you bought not last and you didn't have the money to get more?: Never true Within the past 12 months, did you worry whether your food would run out before you got money to buy more?: Never true Do you have trouble paying for medicines?: No Do you have trouble getting transportation to medical appointments?: No Do you have trouble paying your heating and electricity bill?: No Do you have trouble taking care of your child, family member or friend?: No Do you have trouble with day-to-day activities such as bathing, preparing meals, shopping, managing finances, etc.?: No Are you currently unemployed and looking for a job?: No Are you interested in more education?: No Please select the resources that you would like help with: None Currently or been in a relationship where the following occur: No concerns reported THRIVE Score: 0 AUDIT C Alcohol Use Questionnaire (AUDIT-C) 1. How often do you have a drink containing alcohol?: 4 or more times a week 2. How many drinks containing alcohol do you have on a typical day when you are drinking?: 1 or 2 3. How often do you have six or more drinks on one occasion?: Never Total Score: 4 BATSHEVA-7 AMB Questionnaire BATSHEVA-7 Date BATSHEVA - 7 assessed: 12/10/23 Feeling nervous, anxious, or on edge: 0 = Not at all Not being able to stop or control worryin = Not at all Worrying too much about different things: 0 = Not at all Trouble relaxin = Not at all Being so restless that it is hard to sit still: 0 = Not at all Becoming easily annoyed or irritable: 0 = Not at all Feeling afraid as if something awful might happen: 0 = Not at all Total BATSHEVA-7 score (0-4 normal; 5-9 mild; 10-14 moderate; 15-21 severe): 0 Source: Developed by Drs. Sonny Sorensen, Cris Salazar, Bill Billingsley and colleagues, with an educational olga from [employer]. Review of Systems Const Denies body aches, Denies chills, Denies excessive sweating, Denies fatigue, Denies fever(s) and Denies headache(s) Eyes Denies blurry vision ENT Denies dysphagia, Denies vertigo, Denies dizziness, Denies headache(s), Denies hearing loss and Denies tinnitus Card Denies chest pain, Denies chest pain with activity, Denies syncope, Denies irregular heart rhythm and Denies dyspnea Resp Denies chest congestion, Denies cough, Denies hemoptysis, Denies dyspnea and Denies wheezing GI Denies abdominal pain, Denies melena, Denies hematochezia, Denies coffee ground emesis, Denies dysphagia, Denies diarrhea, Denies nausea and Denies vomiting Denies difficulty urinating, Denies dysuria, Denies urinary frequency, Denies urinary hesitancy and Denies urinary urgency Musc Denies arthralgias, Denies limited range of motion, Denies muscle cramps and Denies muscle weakness Skin/Breast Denies rash and Denies skin ulcer Neuro Denies Abnormal speech present, Denies confusion, Denies vertigo, Denies dizziness, Denies syncope, Denies headache(s), Denies memory loss and Denies seizure-like activity Psych Denies anxiety, Denies confusion, Denies depression, Denies memory loss, Denies panic attacks and Denies paranoia Endo Denies excessive sweating, Denies fatigue, Denies flushing, Denies polydipsia and Denies polyuria Aller/Immun Denies wheezing Physical exam (Primary Care) Vital Signs: Last Vital Signs Pulse 66 12/10/23 07:55 BP 116/86 12/10/23 07:55 Pulse Ox 99 12/10/23 07:55 Oxygen Delivery Method Room Air 12/10/23 07:55 BMI result Body Mass Index 26.5 Tobacco/Smoking Status: Tobacco use Status Tobacco use date assessed 06/03/23 12/10/23 07:55 Patient Tobacco Use Status Never used Tobacco 12/10/23 07:55 e-Cigarette/Vaping Use Never Used 12/10/23 07:55 PHQ-9: PHQ-9 Score PHQ-9: Total score 0 12/10/23 08:01 Depression Screening Interpretation: Negative Thrive Assessment: Date of Thrive Assessment Date Thrive assessed 12/10/23 12/10/23 08:01 Currently or been in a relationship where the following occur: No concerns reported Const General: cooperative, comfortable, no acute distress, alert and awake; No confusion Orientation/consciousness: oriented to person, oriented to place, patient oriented x3 and No confusion HENMT Head: Yes normocephalic Ears: external ears normal and TM's normal bilaterally Face and sinus: No sinus tenderness Mouth: Normal oral and palatal mucosa present and tongue normal Teeth and gingiva: dentition normal and gingiva normal Throat: Yes posterior oropharynx normal, Yes tonsils normal and Yes uvula midline Eyes Conjunctivae: conjunctivae normal Sclerae: sclerae normal Pupils: Equal, round and reactive pupils present EOM: EOMs intact bilaterally Direct Ophthalmoscopy: No no photophobia Neck Neck: Yes no lymphadenopathy, No tender and Yes no JVD Thyroid: Thyroid normal Carotids: no bruits Chest Chest palpation & inspection: no tenderness Resp Effort & Inspection: normal respiratory effort, no audible wheezes, not labored and no stridor Auscultation: no crackles, no rales, no rhonchi and no wheezes Cardio Jugular venous distension: no JVD Rate: regular rate, not bradycardic and not tachycardic Rhythm: regular rhythm Bruits: no carotid bruits Peripheral pulses: Peripheral pulses 2+ throughout GI Inspection: Yes normal to inspection, No abdominal wall ecchymosis and No visible herniation Palpation (GI): Soft to palpation, nontender, no guarding, not rigid and No hepatosplenomegaly present Auscultation: normoactive bowel sounds General: Yes no CVA tenderness Back/Spine/Pelvis Back: no CVA tenderness and No back tenderness Cervical Spine: cervical ROM normal Thoracic/Lumbar Spine: thoracic and lumbar spine normal to inspection, straight leg raise negative bilaterally, No thoraco-lumbar ROM limited and No lumbar spinal tenderness Skin Lesions: no lesions Rashes: no rashes Wounds: no wounds Neuro General: oriented to person, oriented to place, patient oriented x3, CN's II-XI intact bilaterally and No confusion Cranial nerves: Yes Equal, round and reactive pupils present and Yes Normal accommodation reflex present Cognition (Neuro): normal cognition Speech: No Abnormal speech present Gait exam (Neuro): Normal gait present Motor exam (neuro): 5/5 motor strength present throughout Extrem Right upper extremity: full ROM; no cyanosis Left upper extremity: full ROM; no cyanosis Right lower extremity: no edema Left lower extremity: no edema Psych Appearance: grossly normal Mental Status: mental status grossly normal Affect: normal affect Attitude: cooperative Thought process: Normal thought process present Assessment and Plan Assessment & Plan (1) Annual physical exam: Code(s): Z00.00 - Encounter for general adult medical examination without abnormal findings (2) HTN (hypertension): Code(s): I10 - Essential (primary) hypertension Qualifiers: Hypertension type: essential hypertension Qualified Code(s): I10 - Essential (primary) hypertension Plan: Patient's blood pressure acceptable today in office. Will continues current dose of losartan with goal blood pressure to remain below 140/90 Microalbuminuria has improved (3) HLD (hyperlipidemia): Code(s): E78.5 - Hyperlipidemia, unspecified Qualifiers: Hyperlipidemia type: mixed hyperlipidemia Qualified Code(s): E78.2 - Mixed hyperlipidemia Plan: Patient's most recent lipid panel showing borderline cholesterol. He will continue to make lifestyle and dietary modifications. Goal LDL is to be below 130. (4) Microalbuminuria: Code(s): R80.9 - Proteinuria, unspecified Plan: Has resolved Orders: Orders Comprehensive [place]. Panel Fast Today I10 - Essential (primary) hypertension Complete Blood Count no Diff Today I10 - Essential (primary) hypertension Prostate Specific Antigen Scr Today I10 - Essential (primary) hypertension, Z12.5 - Encounter for screening for malignant neoplasm of prostate Lipid Panel Today E78.2 - Mixed hyperlipidemia Microalbumin, Random (w Creat) Today I10 - Essential (primary) hypertension Medications: Refilled losartan 25 mg PO DAILY 90 tabs 3RF sildenafil administer 30 minutes to 4 hours before activity 100 mg PO DAILY 10 days 10 tabs 1RF sexual activity N52.8 - Other male erectile dysfunction Patient Instructions: Goal: Blood pressure to remain below 140/90, LDL to be below 130, total cholesterol to be below 200 Barriers: Adherence to physical activity and healthy eating habits Coding Level of Care Code Est Pt Prev Care >65y(43282) Diagnoses Annual physical exam Z00.00 Essential hypertension I10 Hypertension type: essential hypertension Mixed hyperlipidemia E78.2 Hyperlipidemia type: mixed hyperlipidemia Microalbuminuria R80.9
[2023-12-10 07:55] VITALS: BP 116/86; PULSE 66; O2SAT 99; BMI 26.5
== END 2023-12-10 08:26 | disposition home or self-care (01) ==
PROVIDERS: PCP Physician Assistant; Visit Provider Physician Assistant
DX: Z00.00 Encounter for general adult medical examination without abnormal findings (principal); I10 Essential (primary) hypertension; E78.2 Mixed hyperlipidemia; R80.9 Proteinuria, unspecified
CPT/HCPCS: 99397

== ENCOUNTER 2024-06-01 07:55 | Outpatient (REF) | payer MEDICARE, SELFPAY ==
--- OUTSIDE RECORDS SUMMARY | 2024-06-01 08:04 | XMS_ITS | Data Portability ---
Author Organization [facility] [address] [facility] Address [address] [place] [address] Care Team Providers Care Floor Polisher Name Role Phone ELIZABETH PFEIFFER Primary Care Provider Assessment No assessment recorded. Plan of Treatment Reminders Order Date Submit Date Provider Last Modified By Organization Details Last Modified Time Details Appointments None recorded. Lab None recorded. Referral None recorded. Procedures None recorded. Surgeries None recorded. Imaging None recorded. Medication Orders mupirocin 2 % topical ointment 2022 023 [facility] #[id number], [address] [place], [address], 11:50:55 Patient TargetsNo targets recorded. Patient Instructions Encounter Date Encounter Id Patient Instructions Last Modified By Organization Details Last Modified Time 04/09/2022 [id number] carpal tunnel syndrome: care instructions Not available 04/09/2022 14:39:57 . [email or web address] Not available 2022 15:46:18 10/22/2022 [id number] skin tears: care instructions Not available 10/22/2022 11:51:14 Reason for Referral None Reported. Problems Name Problem SNOMED Code Status Onset Date Resolution Date Notes Provider Name and Address Organization Details Recorded Time Hypertensive disorder 42879939 Active 2022 [facility] 14:17:55 Problem Notes None recorded. Medical Equipment None Reported. Allergies No known drug allergies Medications Name Sig Start Date Stop Date Status Note LastModified by Organization Details LastModified Time losartan 25 mg tablet Take 1 tablet every day by oral route. active Not Available Not Available No t Available mupirocin 2 % topical ointment Apply 1 application twice a day by topical route for 10 days. 2022 active Not Available Not Available Not Avai lable Vitals Date Recorded Body height Body mass index (BMI) Body weight Respiratory rate Oxygen saturation Oxygen saturation in Arterial blood by Pulse oximetry Heart rate Body temperature Systolic blood pressure Diastolic blood pressure Provider Name and Address Organization Details Last Updated DateTime 3 170.18 cm 25.4 kg/m2 79171.9 6 g 16 /min 100 % 100 % 72 /min 97.8 [degF] 148 mm[Hg] 87 mm[Hg] Mayelin Bloom PA - [facility] 3 11:13:19 Date Recorded Body height Body mass index (BMI) Body weight Oxygen saturation Oxygen saturation in Arterial blood by Pulse oximetry Pain severity - 0-10 verbal numeric rating [Score] - Reported Heart rate Respiratory rate Body temperature Systolic blood pressure Diastolic blood pressure Provider Name and Address Organization Details Last Updated DateTime 3 170.18 cm 25.5 kg/m2 06520.5 6 g 99 % 99 % 10 78 /min 18 /min 97.9 [degF] 148 mm[Hg] 76 mm[Hg] Shayy Craig PA - [facility] 3 14:20:07 Social History Question Answer Notes LastModified by [employer] Details LastModified Time Tobacco Smoking Status Never Smoker Shayy lou PA - [facility] 04/09/2022 14:18:04 What Is Your Level Of Alcohol Consumption? None Information not available 04/09/2022 Have You Had Direct Contact, Or Contact During Intimacy, With Monkeypox Rash, Scabs, Or Body Fluids From A Person With Monkeypox? No Information not available 04/09/2022 Do You Use Any Illicit Or Recreational Drugs? No Information not available 04/09/2022 Have You Recently Traveled Abroad? No Information not available 04/09/2022 Do You Or Have You Ever Used Any Other Forms Of Tobacco Or Nicotine? No Information not available 04/09/2022 Sex: Unknown Functional Status None recorded. Mental Status None recorded. Family History Relationship Description Onset Age of this Age Resolved Age Notes LastModified by Organization Details LastModified Time Father No current problems or disability Not available 04/09 14:17:57 Mother No current problems or disability Not available 04/09 14:17:57 Medical History No medical history recorded. Immunizations Vaccine Type Date Status Note Provider Nam e and Address Organization Details Recorded Time Influenza, MDCK, quadrivalent, PF 8 completed Mayelin Ruszala null, PA - [facility] 10/22/2022 11:11:15 Influenza, adjuvanted, quadrivalent, PF 1 completed Mayelin Ruszala null, PA - [facility] 10/22/2022 11:11:15 pneumococcal polysaccharide PPV23 0 completed Mayelin Ruszala null, PA - [facility] 10/22/2022 11:11:16 Tdap 8 completed Mayelin Ruszala null, PA - [facility] 10/22/2022 11:11:16 Tdap 8 completed Mayelin Ruszala null, PA - [facility] 10/22/2022 11:11:16 zoster live 7 completed Mayelin Ruszala null, PA - [facility] 10/22/2022 11:11:16 Influenza, high-dose, trivalent, PF 0 completed Mayelin Ruszala null, PA - [facility] 10/22/2022 11:11:16 Influenza, split virus, quadrivalent, PF 9 completed Mayelin Ruszala null, PA - [facility] 10/22/2022 11:11:16 Influenza, split virus, quadrivalent, PF 6 completed Mayelin Ruszala null, PA - [facility] 10/22/2022 11:11:16 COVID-19, mRNA, LNP-S, PF, 100 mcg/0.5mL dose or 50 mcg/0.25mL dose 1 completed Shayy Kiara null, PA - [facility] 04/09/2022 14:17:34 COVID-19, mRNA, LNP-S, bivalent, PF, 50 mcg/0.5 mL or 25mcg/0.25 mL dose 2 completed Shayy Kiara null, PA - [facility] 04/09/2022 14:17:34 COVID-19, mRNA, LNP-S, PF, 100 mcg/0.5mL dose or 50 mcg/0.25mL dose 1 completed Shayy Kiara null, PA - [facility] 04/09/2022 14:17:34 COVID-19, mRNA, LNP-S, PF, 100 mcg/0.5mL dose or 50 mcg/0.25mL dose 1 completed Shayy [place] null, PA - [facility] 04/09/2022 14:17:34 Influenza, high-dose, quadrivalent, PF 2 completed Shayy [place] null, PA - [facility] 04/09/2022 14:17:34 Past Encounters Encounter ID Performer Location Encounter Start Date Encounter Closed Date Diagnosis/Indication Diagnosis SNOMED-CT Code Diagnosis ICD10 Code Diagnosis Note [id number] [address] [place] [address] 09/27/2017 14:10:27 09/27/2017 15:04:35 [id number] Deondre Nicholson MD [address] [address] 04/09/2022 12:56:43 04/09/2022 14:42:19 Pain of left wrist [id number] 54272 M25.532 Unsure of cause of the pain but much improved during visit and after wearing brace. Discussed possibilit y of carpal tunnel syndrome and should follow up with Orthopedic .Take Ibuprofen 600mg every 6 hours as needed with food.Wear brace for the next 2-3 days [id number] Deondre Nicholson MD [address] [address] 10/22/2022 10:48:42 10/22/2022 11:54:31 Abrasion of skin of right forearm [id number] S50.811A . F/u for any increased swelling, redness, drainage, fever, or red streaks that travel up from the wound. Health Concerns Section Related Observation LastModified by Organization Detai ls LastModified Time None Recorded Concern Status LastModified by Organization Details LastModified Time None Recorded Advance Directives Directive None Recorded Payers Encounter Date Sequence Insurance Name Policy Number Policy Amor Covered Member ID Amor Member ID Guarantor Name 09/27/2017 1 [facility] [id number] Sameer Siddiqi [id number] Sameer Siddiqi 04/09/2022 1 [facility] [id number] Sameer Siddiqi [id number] Sameer Siddiqi 10/22/2022 [employer] Lashawn HannonRerecipe Bucky Sameer Siddiqi Notes Date Note Type Note Provider Name and Address Organization Details Recorded Time 04/09/2022 text/html Wrist/Hand Injur y UCReported bypatient.Associa quyen Symptoms:no redness; no ecchymosis; no fever Severity:severe Duration:1 days Hand Dominance:left Assistive devices:brace Pain was severe this morning, Wore brace all day and now pain is almost gone Deondre Nicholson MD [address] [place], [address], PA - [facility] 04/09/2022 15:46:33 10/22/2022 text/html Skin Redness UCReported bypatient.Locatio n:right arm Quality:not painful Severity:improvin g Onset:sudden onset Symptoms:no fever; no nausea; no vomiting; no swelling Deondre Nicholson MD [address] [place], [address], PA - [facility] 10/27/2022 08:58:28
[2024-06-01 08:17] LABS: Hematocrit 45.3 % (42.0-52.0); Hemoglobin 15.7 g/dl (14.0-18.0); Mean Corpuscular HGB Conc 34.7 g/dl (31.0-36.0); Mean Corpuscular Hemoglobin 30.4 pg (27.0-33.0); Mean Corpuscular Volume 87.6 fL (80.0-98.0); Mean Platelet Volume 9.3 fL (9.4-12.4); Platelet Count 235 X10*3/uL (160-400); Red Blood Count 5.17 X10*6/uL (4.60-5.80); Red Cell Distribution Width 12.1 % (11.0-16.0)
[2024-06-01 09:01] LABS: Alanine Aminotransferase 13 U/L (0-40); Albumin Level 4.3 g/dL (3.5-5.0); Alkaline Phosphatase 87 U/L (39-117); Anion Gap 15 (12-20); Aspartate Amino Transferase 21 U/L (5-37); Bilirubin Total 0.8 mg/dL (0.0-1.0); Blood Urea Nitrogen 22 mg/dL (9-16); Calcium 9.6 mg/dL (8.4-10.2); Carbon Dioxide 25 mmol/L (22-29); Chloride 106 mmol/L (96-108); Cholesterol 199 mg/dL (<200); Estimated Glomerular Filt Rate > 60; Glucose Fasting 96 mg/dL (60-99); HDL Cholesterol 63 mg/dL (>40); LDL Cholesterol Calculated 119 mg/dL (<100); Potassium 4.6 mmol/L (3.3-5.1); Sodium 141 mmol/L (135-145); Total Protein 7.7 g/dL (6.5-8.0); Triglycerides 89 mg/dL (<150)
[2024-06-01 09:17] LABS: Prostate Specific Antigen Scr 1.67 ng/mL (<0.05-4.0)
[2024-06-01 09:30] LABS: Creatinine Urine 213.23 mg/dL; Microalbum/Creatinine Ratio Ur 13.6 ug/mg cr (<30)
== END 2024-06-01 07:56 | disposition home or self-care (01) ==
LOC: HO.LAB 07:55
PROVIDERS: PCP Physician Assistant; Visit Provider Physician Assistant
DX: I10 Essential (primary) hypertension (principal); Z12.5 Encounter for screening for malignant neoplasm of prostate; E78.2 Mixed hyperlipidemia
CPT/HCPCS: 36415; 80053; 80061; 82043; 82570; 84153; 85027

== ENCOUNTER 2024-06-08 07:55 | Outpatient (AMB) | payer MEDICARE, SELFPAY ==
--- NOTE | 2024-06-08 07:57 | A.OFFPC_ITS ---
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 Accompanied by: Self / Same As Patient Allergies ROMAIN INHIBITORS Allergy (Unknown, Uncoded 06/08/24 08:09) COUGH Medication List - Last Reconciled 06/08/24 by Brenden Ledesma PA-C losartan 25 mg PO DAILY sildenafil 100 mg PO DAILY 10 days Tobacco use date assessed: 06/08/24 Fall risk assessment: No Falls in past year Last assessed Fall Risk: 06/08/24 Dental Screening Dental Screen Date: 06/08/24 Did you have a dental visit in the last 12 months?: Yes Did you have a dental problem in the last 6 months where you did not have access to dental care?: No Was dental information given to patient?: Patient has dentist HPI f/u HTN/ boderline high choles HPI Details Sameer is a 68 y/o M here today for a follow-up visit ? Pmhx HTN , HLD,. 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 Hand arthritis: He experiences significant hand arthritis, considering steroid injections to address the swelling and discomfort, exacerbated by ibuprofen for analgesia causing transient elevated blood pressure. He has upcoming appointment with his Orthopedics and usually gets cortisone injections which provide him excellent pain relief. ? .. ? HTN: Does monitor his blood pressure at home, Denies any headaches or CP as of late. Today BP slightly elevated. . ? .. ? Borderline hypercholesterolemia:? Most recent lipid panel showing slightly elevated total cholesterol and LDL. He does admit to some dietary indiscretion Has been working on reducing his high cholesterol foods in being more physically active. Laboratory Tests 12/03/23 06/01/24 06/01/24 07:10 08:02 08:07 RBC 5.17 Creatinine 1.09 Cholesterol 207 H 199 LDL Cholesterol, C alc 130 H 119 H PSA Screen 1.67 Urine Microalbumin 29.0 [facility] Surgical History History of rotator cuff surgery History of knee surgery History of bilateral cataract extraction History of thumb surgery Family History Father Esophageal cancer Mother Breast cancer Social History Housing: House Alcohol intake: current Alcohol intake frequency: a few times a week Alcohol type: beer Patient Tobacco Use Status: Never used Tobacco e-Cigarette/Vaping Use: Never Used Second Hand Smoke Exposure: No service: No Current occupational status: employed and retired 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 1. Little interest or pleasure in doing things: not at all 2. Feeling down, depressed, or hopeless: not at all 3. Trouble falling or staying asleep, or sleeping too much: not at all 4. Feeling tired or having little energy: not at all 5. Poor appetite or overeating: not at all 6. Feeling bad about yourself - or that you are a failure or have let yourself or your family down: not at all 7. Trouble concentrating on things, such as reading the newspaper or watching television: not at all 8. Moving or speaking so slowly that other people could have noticed. Or the opposite - being so fidgety or restless that you have been moving around a lot more than usual: not at all 9. Thoughts that you would be better off or of hurting yourself in some way: not at all Total score: 0 Depression Screening Interpretation: Negative Depression Screening Done: Yes 86970 - PHQ-9 Billing: Yes Source: Developed by Drs. Sonny Sorensen, Cris Salazar, Bill Billignsley and colleagues, with an educational olga from [employer]. Thrive Questionnaire Date Thrive assessed: 06/08/24 I am a: Patient What is your living situation today?: I have a steady place to live Within the past 12 months, did the food you bought not last and you didn't have the money to get more?: Never true Within the past 12 months, did you worry whether your food would run out before you got money to buy more?: Never true Do you have trouble paying for medicines?: No Do you have trouble getting transportation to medical appointments?: No Do you have trouble paying your heating and electricity bill?: No Do you have trouble taking care of your child, family member or friend?: No Do you have trouble with day-to-day activities such as bathing, preparing meals, shopping, managing finances, etc.?: No Are you currently unemployed and looking for a job?: No Are you interested in more education?: No Please select the resources that you would like help with: None Currently or been in a relationship where the following occur: No concerns reported THRIVE Score: 0 AUDIT C Alcohol Use Questionnaire (AUDIT-C) 1. How often do you have a drink containing alcohol?: 4 or more times a week 2. How many drinks containing alcohol do you have on a typical day when you are drinking?: 1 or 2 3. How often do you have six or more drinks on one occasion?: Never Total Score: 4 BATSHEVA-7 AMB Questionnaire BATSHEVA-7 Date BATSHEVA - 7 assessed: 06/08/24 Feeling nervous, anxious, or on edge: 0 = Not at all Not being able to stop or control worryin = Not at all Worrying too much about different things: 0 = Not at all Trouble relaxin = Not at all Being so restless that it is hard to sit still: 0 = Not at all Becoming easily annoyed or irritable: 0 = Not at all Feeling afraid as if something awful might happen: 0 = Not at all Total BATSHEVA-7 score (0-4 normal; 5-9 mild; 10-14 moderate; 15-21 severe): 0 Source: Developed by Drs. Sonny Sorensen, Cris Salazar, Bill Billingsley and colleagues, with an educational olga from [employer]. BATSHEVA-7 Assessment Billing BATSHEVA-7 Assessment Tool: BATSHEVA-7 Assessment 93462 Review of Systems Const Denies headache(s) Eyes Denies loss of vision ENT Denies vertigo, Denies dizziness, Denies headache(s) and Denies sore throat Card Denies chest pain, Denies leg edema and Denies lightheadedness Resp Denies cough, Denies hemoptysis and Denies wheezing GI Denies abdominal pain, Denies melena, Denies constipation, Denies diarrhea and Denies vomiting Denies dysuria, Denies urinary frequency and Denies urinary urgency Musc Denies arthralgias, Denies joint swelling, Denies numbness and Denies tingling Neuro Denies Abnormal speech present, Denies behavioral changes, Denies vertigo, Denies dizziness, Denies headache(s), Denies loss of vision, Denies memory loss, Denies numbness and Denies tingling Psych Denies anxiety, Denies behavioral changes, Denies depression, Denies memory loss and Denies panic attacks Cameron/Lymph Denies easy bleeding and Denies easy bruising Aller/Immun Denies wheezing Physical exam (Primary Care) Vital Signs: Last Vital Signs Pulse 69 06/08/24 07:58 BP 140/80 H 06/08/24 07:58 Pulse Ox 99 06/08/24 07:58 Oxygen Delivery Method Room Air 06/08/24 07:58 BMI result Body Mass Index 27.7 Tobacco/Smoking Status: Tobacco use Status Tobacco use date assessed 06/08/24 06/08/24 08:03 Patient Tobacco Use Status Never used Tobacco 06/08/24 08:03 e-Cigarette/Vaping Use Never Used 06/08/24 08:03 PHQ-9: PHQ-9 Score PHQ-9: Total score 0 06/08/24 08:03 Depression Screening Interpretation: Negative Thrive Assessment: Date of Thrive Assessment Date Thrive assessed 06/08/24 06/08/24 08:03 Currently or been in a relationship where the following occur: No concerns reported Const General: healthy appearing, no acute distress, alert and awake Nutritional Appearance: well nourished Orientation/consciousness: oriented to person, oriented to place and oriented to time HENMT Ears: TM's normal bilaterally General nose exam: Normal nasal mucous membranes and turbinates present Eyes Conjunctivae: conjunctivae normal Sclerae: sclerae normal Pupils: Equal, round and reactive pupils present Neck Neck: Yes no lymphadenopathy and Yes no JVD Thyroid: Thyroid normal Carotids: no bruits Resp Effort & Inspection: normal respiratory effort and not tachypneic Auscultation: no crackles, no rales, no rhonchi and no wheezes Cardio Rate: regular rate Rhythm: regular rhythm Heart sounds: no murmurs and normal S1 and S2 GI Palpation (GI): Soft to palpation, nontender, no hepatomegaly and no splenomegaly Auscultation: normal bowel sounds Skin General skin exam: no rashes or lesions noted and dry skin Neuro General: oriented to person, oriented to place and oriented to time Cranial nerves: Yes Equal, round and reactive pupils present Speech: No Abnormal speech present Gait exam (Neuro): Normal gait present Motor exam (neuro): no tremor noted Extrem Right upper extremity: full ROM Left upper extremity: full ROM Right lower extremity: full ROM; no edema Left lower extremity: full ROM; no edema Psych Mental Status: mental status grossly normal Speech and movement: Normal speech and movement present Affect: normal affect Attitude: cooperative Thought process: Normal thought process present Coding Level of Care Code Est Pt Level 4 (67492) Diagnoses Essential hypertension I10 Hypertension type: essential hypertension Mixed hyperlipidemia E78.2 Hyperlipidemia type: mixed hyperlipidemia Arthritis of both hands M19.041; M19.042 Additional Codes PHQ-9 - 64757 - PHQ-9 Billing: Yes ([id number]) BATSHEVA-7 Assessment Billing - BATSHEVA-7 Assessment Tool: BATSHEVA-7 Assessment 65645 ([id number]) Assessment & Plan Assessment & Plan (1) HTN (hypertension): Code(s): I10 - Essential (primary) hypertension Category: Medical Qualifiers: Hypertension type: essential hypertension Qualified Code(s): I10 - Essential (primary) hypertension Plan: Patient's blood pressure slightly elevated today in office. Has been using NSAID for his hand arthritis or lately which is likely driving his blood pressure up. He continues on losartan 25 mg with good effect on his blood pressure. Will continue to monitor his blood pressure and if consistently above 140/90 will consider increasing losartan dose to 50 mg. (2) HLD (hyperlipidemia): Code(s): E78.5 - Hyperlipidemia, unspecified Category: Medical Qualifiers: Hyperlipidemia type: mixed hyperlipidemia Qualified Code(s): E78.2 - Mixed hyperlipidemia Plan: Successfully decreased total cholesterol to 199 mg/dL and LDL to 119 mg/dL with ongoing diet and exercise measures. Quarterly monitoring advised. Will LDL is to remain below 130 (3) Arthritis of both hands: Code(s): M19.041 - Primary osteoarthritis, right hand; M19.042 - Primary osteoarthritis, left hand Category: Medical Plan: Severe arthritis in the hands, with upcoming planned corticosteroid injection for symptomatic relief. Monitor post-injection improvement. Orders: Orders Complete Blood Count no Diff Today I10 - Essential (primary) hypertension Comprehensive [place]. Panel Fast Today I10 - Essential (primary) hypertension Lipid Panel Today E78.2 - Mixed hyperlipidemia Medications: Refilled losartan 25 mg PO DAILY 90 tabs 3RF I10 - Essential (primary) hypertension Patient Instructions: Goal: Blood pressure to be below 140/90, LDL to be below 130 Barrier: Adherence to physical activity and healthy eating habits
[2024-06-08 07:58] VITALS: BP 140/80; PULSE 69; O2SAT 99; BMI 27.7
== END 2024-06-08 08:27 | disposition home or self-care (01) ==
LOC: HO.HMCH 07:56
PROVIDERS: PCP Physician Assistant; Visit Provider Physician Assistant
DX: I10 Essential (primary) hypertension (principal); E78.2 Mixed hyperlipidemia; M19.041 Primary osteoarthritis, right hand; M19.042 Primary osteoarthritis, left hand

== ENCOUNTER → 2024-06-08 07:55 | Outpatient (BNVA) | payer MEDICARE, SELFPAY | PROVIDERS: PCP Physician Assistant; Visit Provider Physician Assistant | DX: I10 Essential (primary) hypertension (principal); E78.2 Mixed hyperlipidemia; M19.041 Primary osteoarthritis, right hand; M19.042 Primary osteoarthritis, left hand | CPT/HCPCS: 96127; 99212 ==

== ENCOUNTER 2024-12-12 07:35 | Outpatient (REF) | payer MEDICARE, SELFPAY ==
--- OUTSIDE RECORDS SUMMARY | 2024-12-12 07:39 | XMS_ITS | Encounter Summary ---
Author Organization [facility] Address [address] [place] [address] Phone Care Team Providers Care Director Counseling Bureau Name Role Phone Brenden Ledesma Primary Care Provider + Encounter Details Date Type Department Care Team (Late st Contact Info) Description 05/23/2020 Telephone [facility] [address] [place] [address] aKl Martínez MD [address] [place] [address] [email or web address] Social History Tobacco Use Types Packs/Day Years Used Date Smoking Tobacco: Never Smokeless Tobacco: Never Sex and Gender Information Value Date Recorded Sex Assigned at Not on file Legal Sex Male 3:09 PM EST Gender Identity Not on file Sexual Orientation Not on file documented as of this encounter Plan of Treatment Not on file documented as of this encounter Visit Diagnoses Not on filedocumented in this encounter Care Teams Director Counseling Bureau Relationship Specialty Start Date End Date Brenden Ledesma PA [address] [place] [address] PCP - General 05/07/20 documented as of this encounter Additional Source Comments The information contained in this document represents components of the legal health record. It is not the complete legal health record.[facility]
--- OUTSIDE RECORDS SUMMARY | 2024-12-12 07:39 | XMS_ITS | Clinical Summary ---
Author Organization [facility] Address [address] [place] [address] Phone Care Team Providers Care Hydrant Setter Name Role Phone Brenden Ledesma Primary Care Provider + Allergies No known active allergies Medications losartan (COZAAR) 25 MG tablet Take 25 mg by mouth daily. Active acetaminophen (TYLENOL) 500 MG tablet Take 2 tablets (1,000 mg total) by mouth every 8 (eight) hours. 90 tablet 2 06/15/19 Active Additional Information Patient not taking.Reported on 06/03/2022 docusate sodium (COLACE) 100 MG capsule Take 1 capsule (100 mg total) by mouth 2 (two) times a day. 90 capsule 2 06/15/19 Active Additional Information Patient not taking.Reported on 06/03/2022 senna (SENOKOT) 8.6 mg tablet Take 2 tablets by mouth daily. 90 tablet 2 06/15/19 Active Additional Information Patient not taking.Reported on 06/03/2022 naproxen (NAPROSYN) 500 MG tablet Take 1 tablet (500 mg total) by mouth 2 (two) times a day with meals for 14 days. 28 tablet 06/16/19 Active omeprazole (PRILOSEC) 20 MG capsule Take 1 capsule (20 mg total) by mouth daily before breakfast. 30 capsule 1 06/16/19 Active Additional Information Patient not taking.Reported on 06/03/2022 ondansetron (ZOFRAN-ODT) 4 MG disintegrating tablet Take 1 tablet (4 mg total) by mouth every 8 (eight) hours as needed for nausea. 20 tablet 06/15/19 Active Additional Information Patient not taking.Reported on 06/03/2022 aspirin 81 MG EC tabletIndications: PEPPER Trial Take 1 tablet (81 mg total) by mouth 2 (two) times a day. Indications: PEPPER Trial 60 tablet 06/16/19 Active HYDROmorphone (DILAUDID) 2 MG tablet [The details of the medication are not available because there are pending changes by a home health clinician.] 40 tablet 06/23/19 Active Additional Information Patient not taking.Reason: Therapy complete, Informant: Self, Reported on 07/05/2020 traMADoL (ULTRAM) 50 mg tablet Take 1-2 tablets (50-100 mg total) by mouth every 8 (eight) hours as needed for pain (specific location in comments). 50 tablet 06/30/19 Active Additional Information Patient not taking.Reported on 06/03/2022 gabapentin (NEURONTIN) 100 MG capsule Take 1 capsule (100 mg total) by mouth 3 (three) times a day as needed (nerve pain). 42 capsule 1 06/30/19 Active Additional Information Patient not taking.Reported on 06/03/2022 Active Problems Problem Noted Date Diagnosed Date Hypertensive disorder Overview (06/07/2020): controlled on losartan Arthritis Shoulder pain, right Overview (06/07/2020): partial torn bicep tendon and bone spur, cortisone injection 01/2020 Family History Medical History Relation Comments Hearing loss Father Stroke Father Breast cancer Mother Anesthesia problems Neg Hx Deep vein thrombosis Neg Hx Diabetes Neg Hx Heart disease Neg Hx Malig Hyperthermia Neg Hx Pseudochol deficiency Neg Hx Relation Status Comments Father Mother (Age 41) breast cancer Social History Tobacco Use Types Packs/Day Years Used Date Smoking Tobacco: Never Smokeless Tobacco: Never Alcohol Use Standard Drinks/Week Comments Yes 6 (1 standard drink = 0.6 oz pur e alcohol) Education Answer Date Recorded Are you interested in more education? Not on nelson e 07/25/2022 Are you concerned about learning? Not on file 07/25/2022 No 07/25/2022 No 07/25/2022 Digital Access Answer Date Recorded No 08/23/2022 No 08/23/2022 No 08/23/2022 Reliable internet access at home? Not on file 08/23/2022 Device with a working camera? Not on file Sex and Gender Information Value Date Recorded Sex Assigned at Not on file Legal Sex Male 3:09 PM EST Gender Identity Not on file Sexual Orientation Not on file Last Filed Vital Signs Vital Sign Reading Time Taken Comments Blood Pressure 140/88 07/05/2020 9:05 AM EDT Pulse 67 07/05/2020 9:05 AM EDT Temperature 36.1 C (97 F) 07/05/2020 9:05 AM EDT Respiratory Rate 14 07/05/2020 9:05 AM EDT Oxygen Saturation 99% 07/05/2020 9:05 AM EDT Inhaled Oxygen Concentration - - Weight 73.9 kg (163 lb) 06/03/2022 10:27 AM EST Height 170.2 cm (5' 7 ) 06/03/2022 10:27 AM EST Body Mass Index 25.53 06/03/2022 10:27 AM EST Plan of Treatment Health Maintenance Due Date Last Done Comments BLOOD PRESSURE 1953 LIPID PANEL 1953 DEPRESSION SCREENING 1965 HEPATITIS C SCREENING 07/05/1971 COLOGUARD 1998 COLONOSCOPY 1998 COLORECTAL CANCER SCREENING 1998 FIT TEST 1998 FOBT 1998 SIGMOIDOSCOPY 1998 VIRTUAL COLONOSCOPY 1998 ZOSTER VACCINES (2 of 3) 11/28/2016 10/03/2016 PNEUMOCOCCAL VACCINES (50+ years) (2 of 2 - PCV) 09/19/2020 09/20/2019 CREATININE LEVEL 06/11/2021 06/11/2020 POTASSIUM LEVEL 06/11/2021 06/11/2020 INFLUENZA VACCINE (#1) 2024 0, 01/04/2019, 01/08/2018, Additional history exists COVID-19 VACCINE (2 - 2024- season) 2024 05/31/2020 Adult Td,Tdap Booster 01/09/2028 01/08/2018, 018 RSV VACCINE (1 - 1-dose 75+ series) 2028 SMOKING STATUS SCREENING (Once After 26 Yrs) Completed 06/03/2022 HEPATITIS A VACCINES Aged Out No long er eligible based on patient's age to complete this topic HIB VACCINES Aged Out No longer eligi ble based on patient's age to complete this topic MENINGOCOCCAL VACCINES (ACWY) Aged Out No longer eligible based on patient's age to complete this topic MENINGOCOCCAL VACCINES (B) Aged Out N o longer eligible based on patient's age to complete this topic Medical Devices Implanted Type Area Estimator Printing Device Identifier Shelf Expiration Date Model / Serial / Lot Tray Tibial Knee [place] Aoy Rt Medial Size B - Sn/A Implanted:Qty: 1 on 06/14/2020 by Kal Martínez MD at [facility] STANDARD Right: Knee [employer] 02/19/2029 [id number] / N/A / [id number] Knee Bearing Medium Size 3 Component Tibial [place] Polyethylene Meniscal Anatomic Right - Sn/A Implanted:Qty: 1 on 06/14/2020 by Kal Martínez MD at [facility] STANDARD Right: Knee [employer] 02/20/2025 [id number] / N/A / [id number] Knee Implant Medium Component Femoral [place] Holl[place] Alloy Twin Pegged Cemented Partial - Sn/A Implanted:Qty: 1 on 06/14/2020 by Kal Martínez MD at [facility] Right: Knee [employer] 02/11/2030 [id number] / N/A / [id number] Cement Bone [place] R High Viscosity 1x40g Cs/20ea - Uom Issue Use Ps # [id number] - Sn/A Implanted:Qty: 1 on 06/14/2020 by Kal Martínez MD at [facility] Right: Knee [employer] 01/28/2024 [id number] / N/A / [id number] Procedures Procedure Name Priority Date/Time Associated Diagnosis Comments COMPREHENSIVE METABOLIC PANEL Routine 06/11/2020 12:18 PM EDT Generalized pain from Last 3 Months or Most Recently Relevant to Health Maintenance Results * (ABNORMAL) Comprehensive metabolic panel (06/11/2020 12:18 PM EDT) [facility] SODIUM 135 133 - 146 mmol/L [facility] POTASSIUM 4.7 3.3 - 5.1 mmol/L [facility] CHLORIDE 100 96 - 108 mmol/L [facility] CO2 25 21 - 35 mmol/L [facility] BUN 23(H) 6 - 19 mg/dL [facility] CREATININE 1.00 0.5 - 1.5 mg/dL [facility] GLUCOSE 104(H) 70 - 99 mg/dL [facility] ALBUMIN 4.2 3.9 - 4.8 g/dL [facility] TOTAL PROTEIN 7.0 6.5 - 8.0 g/dL [facility] CALCIUM 9.3 8.4 - 10.3 mg/dL [facility] ALKALINE PHOSPHATASE 84 39 - 117 U/L [facility] TOTAL BILIRUBIN 0.4 0.0 - 1.2 mg/dL [facility] AST 32 0 - 37 U/L [facility] ALT 43(H) 0 - 40 U/L [facility] GLOBULIN 2.8 1 - 4.8 g/dL [facility] EGFR 78 >59 mL/min/1.7 3m2 [facility] Comment:Estimated glomerular filtration rate calculated using the CKD-EPI equation. ANION GAP 15 10 - 20 mmol/L [facility] Blood 06/11/2020 12:1 8 PM EDT 06/11/2020 12:23 PM EDT us Kal Martínez MD LAB BLOOD ORDERABLES Final Resul t Performing Organization Address City/State/[facility] Co de Phone Number [facility] [address] [place] [address] from Last 3 Months or Most Recently Relevant to Health Maintenance Insurance [employer] [place] POS PPO REPLACEMENT MEDICARE PART A & B [employer] [place] PPO REPLACEMENT MEDICARE PART A & B [place] [place] PPO REPLACEMENT [place] PPO REPLACEMENT [place] [place] PPO REPLACEMENT MEDICARE PART A & B [place] [place] POS PPO REPLACEMENT [place] [place] POS PPO REPLACEMENT MEDICARE PART A & B [place] [place] POS PPO REPLACEMENT MEDICARE PART A & B [employer] [place] POS PPO REPLACEMENT MEDICARE PART A & B Care Teams Hydrant Setter Relationship Specialty Start Date End Date Brenden Ledesma PA [address] [place] [address] PCP - General 05/07/20 Additional Source Comments The information contained in this document represents components of the legal health record. It is not the complete legal health record.[facility]
--- OUTSIDE RECORDS SUMMARY | 2024-12-12 07:39 | XMS_ITS | Encounter Summary ---
Author Organization [facility] Address [address] [place] [address] Phone Care Team Providers Care Blood Bank Credit Clerk Name Role Phone Brenden Ledesma Primary Care Provider + Encounter Details Date Type Department Care Team (Late st Contact Info) Description 06/14/2020 Procedure Pass BWF Periop 6th floor [address] [place] [address] Social History Tobacco Use Types Packs/Day Years Used Date Smoking Tobacco: Never Smokeless Tobacco: Never Alcohol Use Standard Drinks/Week Comments Yes 6 (1 standard drink = 0.6 oz pur e alcohol) Sex and Gender Information Value Date Recorded Sex Assigned at Not on file Legal Sex Male 3:09 PM EST Gender Identity Not on file Sexual Orientation Not on file documented as of this encounter Plan of Treatment Not on file documented as of this encounter Visit Diagnoses Not on filedocumented in this encounter Care Teams Blood Bank Credit Clerk Relationship Specialty Start Date End Date Brenden Ledesma PA [address] [place] [address] PCP - General 05/07/20 documented as of this encounter Additional Source Comments The information contained in this document represents components of the legal health record. It is not the complete legal health record.[facility]
--- OUTSIDE RECORDS SUMMARY | 2024-12-12 07:39 | XMS_ITS | Patient Health Record ---
Author Organization [facility] Address [address] [place] [address] Care Team Providers Care Process Artist Name Role Phone Frida(inactive) Carlito CH Primary Care Provider U amy Sonny Tovar Unavailable [phone] Reason For Referral No Information Medications Medication SIG (Take, Route, Fr equency, Duration) Notes Start Date End Date Status Valsartan 80 MG 1 tablet Orally Once a day Active Suprep Bowel Prep 1 kit as directed Oral ly as directed for 1 dose 01/14/2015 Active Problems Problem Type SNOMED Code ICD Code Onset Dates Problem Status W/U Status Risk Notes Problem 11541678 Preprocedural examination (Z01.818) Active confirmed Problem 266027044 Aspirin long-ter m use (Z79.82) Active confirmed Problem 747581357 Screening for colon cancer (Z12.11) Active confirmed Plan Of Treatment Pending Test Test Name Order Date GI BIOPSY 04/06/2015 Future Test Test Name Order Date COLONOSCOPY 01/09/2015 Insurance Providers Payer Name Payer Address Payer Phone Subscriber Number Group Number Insured Name Patient Relationship to Insured Coverage Start Date Coverage End Date [facility] [address] [place] [phone] [id number] RYLEE SOSA Self - patient is the insured Medical (General) History Medical History History ICD Code HTN Denies [place],DM,CVA,Lung disease,renal dise ase Negative colonoscopy in 09/[address] Sales-neg. except for internal hemorrhoids Surgical History Surgery Date(Month/Year) RIGHT THUMB 2013
[2024-12-12 08:29] LABS: Hematocrit 45.8 % (42.0-52.0); Hemoglobin 15.5 g/dl (14.0-18.0); Mean Corpuscular HGB Conc 33.8 g/dl (31.0-36.0); Mean Corpuscular Hemoglobin 29.8 pg (27.0-33.0); Mean Corpuscular Volume 87.9 fL (80.0-98.0); NRBC Abs Auto 0.000 X10*3/uL (0.0-0.012); NRBC Pct Auto 0.0 /100WBC (0.0-0.2); Platelet Count 221 X10*3/uL (160-400); Red Blood Count 5.21 X10*6/uL (4.60-5.80); White Blood Count 6.8 X10*3/uL (4.8-10.8)
[2024-12-12 08:55] LABS: Alanine Aminotransferase 14 U/L (0-40); Albumin Level 4.3 g/dL (3.5-5.0); Alkaline Phosphatase 81 U/L (39-117); Anion Gap 13 (12-20); Aspartate Amino Transferase 24 U/L (5-37); Blood Urea Nitrogen 19 mg/dL (9-16); Calcium 9.2 mg/dL (8.4-10.2); Carbon Dioxide 25 mmol/L (22-29); Chloride 107 mmol/L (96-108); Cholesterol 201 mg/dL (<200); Estimated Glomerular Filt Rate > 60; HDL Cholesterol 52 mg/dL (>40); Potassium 4.4 mmol/L (3.3-5.1); Sodium 141 mmol/L (135-145); Total Protein 7.2 g/dL (6.5-8.0); Triglycerides 100 mg/dL (<150)
== END 2024-12-12 07:36 | disposition home or self-care (01) ==
LOC: HO.LAB 07:35
PROVIDERS: PCP Physician Assistant; Visit Provider Physician Assistant
DX: I10 Essential (primary) hypertension (principal); E78.2 Mixed hyperlipidemia
CPT/HCPCS: 36415; 80053; 80061; 85027

== ENCOUNTER 2024-12-15 07:37 | Outpatient (AMB) | payer MEDICARE, SELFPAY ==
--- OUTSIDE RECORDS SUMMARY | 2024-12-15 07:39 | XMS_ITS | Encounter Summary ---
Author Organization [facility] Address [address] [place] [address] Phone Care Team Providers Care Legal Internship Name Role Phone Brenden Ledesma Primary Care Provider + Encounter Details Date Type Department Care Team (Late st Contact Info) Description 06/14/2020 Procedure Pass BWF Periop 6th floor [address] [place] [address] Social History Tobacco Use Types Packs/Day Years [...] on filedocumented in this encounter Care Teams Legal Internship Relationship Specialty Start Date End Date Brenden Ledesma PA [address] [place] [address] PCP - General 05/07/20 documented as of this encounter Additional Source Comments The information contained in this document represents components of the legal health record. It is not the complete legal health record.[facility]
--- OUTSIDE RECORDS SUMMARY | 2024-12-15 07:39 | XMS_ITS | Patient Health Record ---
Author Organization [facility] Address [address] [place] [address] Care Team Providers Care Rayon Winder Name Role Phone Frida(inactive) Carlito CH Primary Care Provider U amy Sonny Tovar Unavailable [phone] Reason For Referral No Information Medications Medication SIG (Take, Route, Fr equency, Duration) Notes Start Date End Date Status Valsartan 80 MG 1 tablet Orally Once a day Active Suprep Bowel Prep 1 kit as directed Oral ly as directed for 1 dose 01/14/2015 Active Problems Problem Type SNOMED Code ICD Code Onset Dates Problem Status W/U Status Risk Notes Problem 94335079 Preprocedural examination (Z01.818) Active confirmed Problem 668810621 Aspirin long-ter m use (Z79.82) Active confirmed Problem 539836494 Screening for colon cancer (Z12.11) Active confirmed Plan Of Treatment Pending Test Test Name Order Date GI BIOPSY 04/06/2015 Future Test Test Name Order Date COLONOSCOPY 01/09/2015 Insurance Providers Payer Name Payer Address Payer Phone Subscriber Number Group Number Insured Name Patient Relationship to Insured Coverage Start Date Coverage End Date [facility] [address] [place] [phone] [id number] RYLEE SOSA Self - patient is the insured Medical (General) History Medical History History ICD Code HTN Denies [place],DM,CVA,Lung disease,renal dise ase Negative colonoscopy in 09/[address] Sales-neg. except for internal hemorrhoids Surgical History Surgery Date(Month/Year) RIGHT THUMB 2013
--- OUTSIDE RECORDS SUMMARY | 2024-12-15 07:39 | XMS_ITS | Encounter Summary ---
Author Organization [facility] Address [address] [place] [address] Phone Care Team Providers Care Secondary English Teacher Name Role Phone Brenden Ledesma Primary Care Provider + Encounter Details Date Type Department Care Team (Late st Contact Info) Description 05/23/[address] [facility] [address] [place] [address] Kal Martínez MD [address] [place] [address] [email or web address] Social History Tobacco Use Types Packs/Day Years [...] on filedocumented in this encounter Care Teams Secondary English Teacher Relationship Specialty Start Date End Date Brenden Ledesma PA [address] [place] [address] PCP - General 05/07/20 documented as of this encounter Additional Source Comments The information contained in this document represents components of the legal health record. It is not the complete legal health record.[facility]
--- OUTSIDE RECORDS SUMMARY | 2024-12-15 07:39 | XMS_ITS | Clinical Summary ---
Author Organization [facility] Address [address] [facility] [address] [place] [address] Phone Care Team Providers Care Technical Training Instructor Name Role Phone Brenden Ledesma Primary Care [...] this topic Medical Devices Implanted Type Area Finish Production Manager Device Identifier Shelf Expiration Date Model / Serial / Lot Tray Tibial Knee [place] Aoy Rt Medial Size B - Sn/A Implanted:Qty: 1 on 06/14/2020 by Kal Martínez MD at [facility] STANDARD Right: Knee [employer] 02/19/2029 [id number] / N/A / [id number] Knee Bearing Medium Size 3 Component Tibial [place] Polyethylene Meniscal Anatomic Right - Sn/A Implanted:Qty: 1 on 06/14/2020 by Kal Martínez MD at [facility] STANDARD Right: Knee [employer] 02/20/2025 [id number] / N/A / [id number] Knee Implant Medium Component Femoral [place] Alloy Twin Pegged Cemented Partial - Sn/A Implanted:Qty: 1 on 06/14/2020 by Kla Martínez MD at [facility] Right: Knee [employer] 02/11/2030 [id number] / N/A / [id number] Cement Bone [place] R High Viscosity 1x40g Cs/20ea - Uom Issue Use Ps # [id number] - Sn/A Implanted:Qty: 1 on 06/14/2020 by Kal Martínez MD at [facility] Right: Knee [employer] 01/28/2024 [id number] / N/A / [id number] Procedures Procedure Name Priority Date/Time Associated Diagnosis Comments COMPREHENSIVE METABOLIC PANEL Routine 06/11/2020 12:18 PM EDT Generalized pain from Last 3 Months or Most Recently Relevant to Health Maintenance Results * (ABNORMAL) Comprehensive metabolic panel (06/11/2020 12:18 PM EDT) [facility] SODIUM 135 133 - 146 mmol/L [facility] POTASSIUM 4.7 3.3 - 5.1 mmol/L [facility] CHLORIDE 100 96 - 108 mmol/L [facility] CO2 25 21 - 35 mmol/L [facility] BUN 23(H) 6 - 19 mg/dL [facility] CREATININE 1.00 0.5 - 1.5 mg/dL [facility] GLUCOSE 104(H) 70 - 99 mg/dL [facility] ALBUMIN 4.2 3.9 - 4.8 g/dL [facility] TOTAL PROTEIN 7.0 6.5 - 8.0 g/dL [facility] CALCIUM 9.3 8.4 - 10.3 mg/dL [facility] ALKALINE PHOSPHATASE 84 39 - 117 U/L [facility] TOTAL BILIRUBIN 0.4 0.0 - 1.2 mg/dL [facility] AST 32 0 - 37 U/L [facility] ALT 43(H) 0 - 40 U/L [facility] GLOBULIN 2.8 1 - 4.8 g/dL [facility] EGFR 78 >59 mL/min/1.7 3m2 [facility] Comment:Estimated glomerular filtration rate calculated using the CKD-EPI equation. ANION GAP 15 10 - 20 mmol/L [facility] Blood 06/11/2020 12:1 8 PM EDT 06/11/2020 12:23 PM EDT us Kal Martínez MD LAB BLOOD ORDERABLES Final Resul t Performing Organization Address City/State/[facility] Co de Phone Number [facility] [address] [place] [address] from Last 3 Months or Most Recently Relevant to Health Maintenance Insurance [place] POS PPO REPLACEMENT MEDICARE PART A & B [place] [place] POS PPO REPLACEMENT MEDICARE PART A & B [place] [place] PPO REPLACEMENT [place] [place] PPO REPLACEMENT [place] POS PPO REPLACEMENT MEDICARE PART A & B Member Subscriber Plan / Payer (Ef fective 2022-Present) Name:Sameer Siddiqi Member ID:[id number] Relation to Subscriber:Self Name:Sameer Siddiqi Subscriber ID:[id number] Payer ID:[id number] Group ID:Not on file Type:Medicare Address: [facility] [employer]. [address] [place] [address] [employer] [place] POS PPO REPLACEMENT [place] [place] PPO REPLACEMENT MEDICARE PART A & B Member Subscriber Plan / Payer (Ef fective 2022-Present) Name:Sameer Siddiqi Member ID:[id number] Relation to Subscriber:Self Name:Sameer Siddiqi Subscriber ID:[id number] Payer ID:[id number] Group ID:Not on file Type:Medicare Address: [facility] [employer]. [address] [place] [address] [place] [place] POS PPO REPLACEMENT MEDICARE PART A & B [place] [place] POS PPO REPLACEMENT MEDICARE PART A & B Care Teams Technical Training Instructor Relationship Specialty Start Date End Date Brenden Ledesma PA [address] [place] [address] PCP - General 05/07/20 Additional Source Comments The information contained in this document represents components of the legal health record. It is not the complete legal health record.[facility]
[2024-12-15 07:52] VITALS: BP 142/88; PULSE 78; O2SAT 98; BMI 26.6
--- NOTE | 2024-12-15 07:52 | MHC.PC.OV ---
Vital Signs 12/15/24 07:52 Height 5 ft 7 in Weight 170 lb BMI 26.6 BP 142/88 H Blood Pressure Location Lt brachial Position Sitting Pulse 78 Pulse Source Pulse Oximeter Pulse Oximetry (%) 98 Oxygen Delivery Method Room Air Intake Visit Reasons: Annual Exam Allergies [facility] [employer] Allergy (Unknown, Uncoded 12/15/24 08:08) COUGH Medication List - Last Reconciled 12/15/24 by Brenden Ledesma PA-C losartan 25 mg PO DAILY sildenafil 100 mg PO DAILY 10 days Tobacco use date assessed: 06/08/24 Fall risk assessment: No Falls in past year Last assessed Fall Risk: 12/15/24 Dental Screening Dental Screen Date: 06/08/24 HPI Annual Exam HPI Details Sameer is a 69 y/o M here today for a follow-up visit ? Pmhx HTN , HLD,. 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 There is no family history of Parkinson's disease, and the tremor does not occur at rest. The patient is not keen on medication for the tremor unless it significantly worsens. .. Hand arthritis: He experiences significant hand arthritis, considering steroid injections to address the swelling and discomfort, exacerbated by ibuprofen for analgesia causing transient elevated blood pressure. He has used meloxicam in the past for inflammation and reports it has been beneficial. ? .. ? HTN: Patient blood pressure elevated today in office. He reports he has been under a bit more stress as of lately not sleeping well. Continues on losartan 25 mg. Otherwise denies any chest pain, headache, blurry vision. PLAN: Will increase his losartan 50 mg for better blood pressure control ? .. ? Borderline hypercholesterolemia:? Most recent lipid panel showing slightly elevated total cholesterol and LDL. He does admit to some dietary indiscretion Has been working on reducing his high cholesterol foods in being more physically active. Colonoscopy: done in 2016- repeat 10 years Vaccines: Up-to-date with COVID vaccine, pneumonia vaccine she shingles vaccine and tetanus vaccine, will be getting flu shot some [facility] Surgical History History of rotator cuff surgery History of knee surgery History of bilateral cataract extraction History of thumb surgery Family History Father Esophageal cancer Mother Breast cancer Social History (Updated 12/15/24 @ 08:12 by Brenden Ledesma PA-C) Housing: House Alcohol intake: current Alcohol intake frequency: a few times a month Alcohol type: beer Patient Tobacco Use Status: Never used Tobacco Tobacco use type: Cigarette e-Cigarette/Vaping Use: Never Used Second Hand Smoke Exposure: No service: No Current occupational status: employed and retired 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 1. Little interest or pleasure in doing things: not at all 2. Feeling down, depressed, or hopeless: not at all 3. Trouble falling or staying asleep, or sleeping too much: not at all 4. Feeling tired or having little energy: not at all 5. Poor appetite or overeating: not at all 6. Feeling bad about yourself - or that you are a failure or have let yourself or your family down: not at all 7. Trouble concentrating on things, such as reading the newspaper or watching television: not at all 8. Moving or speaking so slowly that other people could have noticed. Or the opposite - being so fidgety or restless that you have been moving around a lot more than usual: not at all 9. Thoughts that you would be better off or of hurting yourself in some way: not at all Total score: 0 Depression Screening Interpretation: Negative Depression Screening Done: Yes 19091 - PHQ-9 Billing: Yes Source: Developed by Drs. Sonny Sorensen, Cris Salazar, Bill Billingsley and colleagues, with an educational olga from [employer]. Thrive Questionnaire Date Thrive assessed: 12/08/24 I am a: Patient What is your living situation today?: I have a steady place to live Within the past 12 months, did the food you bought not last and you didn't have the money to get more?: Never true Within the past 12 months, did you worry whether your food would run out before you got money to buy more?: Never true Do you have trouble paying for medicines?: No Do you have trouble getting transportation to medical appointments?: No Do you have trouble paying your heating and electricity bill?: No Do you have trouble taking care of your child, family member or friend?: No Do you have trouble with day-to-day activities such as bathing, preparing meals, shopping, managing finances, etc.?: No Are you currently unemployed and looking for a job?: No Are you interested in more education?: No Please select the resources that you would like help with: None Currently or been in a relationship where the following occur: No concerns reported THRIVE Score: 0 AUDIT C Alcohol Use Questionnaire (AUDIT-C) 1. How often do you have a drink containing alcohol?: 2-3 times a week 2. How many drinks containing alcohol do you have on a typical day when you are drinking?: 3 or 4 3. How often do you have six or more drinks on one occasion?: Never Total Score: 4 BATSHEVA-7 AMB Questionnaire BATSHEVA-7 Date BATSHEVA - 7 assessed: 06/08/24 Feeling nervous, anxious, or on edge: 0 = Not at all Not being able to stop or control worryin = Not at all Worrying too much about different things: 0 = Not at all Trouble relaxin = Not at all Being so restless that it is hard to sit still: 0 = Not at all Becoming easily annoyed or irritable: 0 = Not at all Feeling afraid as if something awful might happen: 0 = Not at all Total BATSHEVA-7 score (0-4 normal; 5-9 mild; 10-14 moderate; 15-21 severe): 0 Source: Developed by Drs. Sonny Sorensen, Cris Salazar, Bill Billingsley and colleagues, with an educational olga from [employer]. Review of Systems Const Denies body aches, Denies chills, Denies excessive sweating, Denies fatigue, Denies fever(s) and Denies headache(s) Eyes Denies blurry vision ENT Denies dysphagia, Denies vertigo, Denies dizziness, Denies headache(s), Denies hearing loss and Denies tinnitus Card Denies chest pain, Denies chest pain with activity, Denies syncope, Denies irregular heart rhythm and Denies dyspnea Resp Denies chest congestion, Denies cough, Denies hemoptysis, Denies dyspnea and Denies wheezing GI Denies abdominal pain, Denies melena, Denies hematochezia, Denies coffee ground emesis, Denies dysphagia, Denies diarrhea, Denies nausea and Denies vomiting Denies difficulty urinating, Denies dysuria, Denies urinary frequency, Denies urinary hesitancy and Denies urinary urgency Musc Denies arthralgias, Denies limited range of motion, Denies muscle cramps and Denies muscle weakness Skin/Breast Denies rash and Denies skin ulcer Neuro Denies Abnormal speech present, Denies confusion, Denies vertigo, Denies dizziness, Denies syncope, Denies headache(s), Denies memory loss, Denies seizure-like activity and Reports tremor(s) Psych Denies anxiety, Denies confusion, Denies depression, Denies memory loss, Denies panic attacks and Denies paranoia Endo Denies excessive sweating, Denies fatigue, Denies flushing, Denies polydipsia and Denies polyuria Aller/Immun Denies wheezing Physical exam (Primary Care) Vital Signs: Last Vital Signs Pulse 78 12/15/24 07:52 BP 142/88 H 12/15/24 07:52 Pulse Ox 98 12/15/24 07:52 Oxygen Delivery Method Room Air 12/15/24 07:52 BMI result Body Mass Index 26.6 Tobacco/Smoking Status: Tobacco use Status Tobacco use date assessed 06/08/24 12/15/24 07:55 Patient Tobacco Use Status Never used Tobacco 12/15/24 07:55 Tobacco use type Cigarette 12/15/24 07:55 e-Cigarette/Vaping Use Never Used 12/15/24 07:55 PHQ-9: PHQ-9 Score PHQ-9: Total score 0 12/15/24 07:55 Depression Screening Interpretation: Negative Thrive Assessment: Date of Thrive Assessment Date Thrive assessed 12/08/24 12/15/24 07:55 Currently or been in a relationship where the following occur: No concerns reported Const General: cooperative, comfortable, no acute distress, alert and awake; No confusion Orientation/consciousness: oriented to person, oriented to place, patient oriented x3 and No confusion HENMT Head: Yes normocephalic Ears: external ears normal and TM's normal bilaterally Face and sinus: No sinus tenderness Mouth: Normal oral and palatal mucosa present and tongue normal Teeth and gingiva: dentition normal and gingiva normal Throat: Yes posterior oropharynx normal, Yes tonsils normal and Yes uvula midline Eyes Conjunctivae: conjunctivae normal Sclerae: sclerae normal Pupils: Equal, round and reactive pupils present EOM: EOMs intact bilaterally Direct Ophthalmoscopy: No no photophobia Neck Neck: Yes no lymphadenopathy, No tender and Yes no JVD Thyroid: Thyroid normal Carotids: no bruits Chest Chest palpation & inspection: no tenderness Resp Effort & Inspection: normal respiratory effort, no audible wheezes, not labored and no stridor Auscultation: no crackles, no rales, no rhonchi and no wheezes Cardio Jugular venous distension: no JVD Rate: regular rate, not bradycardic and not tachycardic Rhythm: regular rhythm Bruits: no carotid bruits Peripheral pulses: Peripheral pulses 2+ throughout GI Inspection: Yes normal to inspection, No abdominal wall ecchymosis and No visible herniation Palpation (GI): Soft to palpation, nontender, no guarding, not rigid and No hepatosplenomegaly present Auscultation: normoactive bowel sounds General: Yes no CVA tenderness Back/Spine/Pelvis Back: no CVA tenderness and No back tenderness Cervical Spine: cervical ROM normal Thoracic/Lumbar Spine: thoracic and lumbar spine normal to inspection, straight leg raise negative bilaterally, No thoraco-lumbar ROM limited and No lumbar spinal tenderness Skin Lesions: no lesions Rashes: no rashes Wounds: no wounds Neuro Other: NOTICED SLIGHT HAND TREMOR WHEN MANIPULATING HANDS General: oriented to person, oriented to place, patient oriented x3, CN's II-XI intact bilaterally and No confusion Cranial nerves: Yes Equal, round and reactive pupils present and Yes Normal accommodation reflex present Cognition (Neuro): normal cognition Speech: No Abnormal speech present Gait exam (Neuro): Normal gait present Motor exam (neuro): 5/5 motor strength present throughout Extrem Right upper extremity: full ROM; no cyanosis Left upper extremity: full ROM; no cyanosis Right lower extremity: no edema Left lower extremity: no edema Psych Appearance: grossly normal Mental Status: mental status grossly normal Affect: normal affect Attitude: cooperative Thought process: Normal thought process present Coding Level of Care Code Est Pt Prev Care >65y(99836) Diagnoses Essential hypertension I10 Hypertension type: essential hypertension Mixed hyperlipidemia E78.2 Hyperlipidemia type: mixed hyperlipidemia Arthritis of both hands M19.041; M19.042 Tremor R25.1 Additional Codes PHQ-9 - 46349 - PHQ-9 Billing: Yes ([id number]) Assessment & Plan Assessment & Plan (1) HTN (hypertension): Code(s): I10 - Essential (primary) hypertension Category: Medical Qualifiers: Hypertension type: essential hypertension Qualified Code(s): I10 - Essential (primary) hypertension Plan: Patient's blood pressure slightly elevated today in office. Will increase his losartan to 50 mg for better blood pressure control. Goal blood pressures to be below 140/90 (2) HLD (hyperlipidemia): Code(s): E78.5 - Hyperlipidemia, unspecified Category: Medical Qualifiers: Hyperlipidemia type: mixed hyperlipidemia Qualified Code(s): E78.2 - Mixed hyperlipidemia Plan: Successfully decreased total cholesterol to 201 mg/dL and LDL to 130 mg/dL with ongoing diet and exercise measures. Quarterly monitoring advised. Of note does have a family history of high cholesterol Will LDL is to remain below 130 (3) Arthritis of both hands: Code(s): M19.041 - Primary osteoarthritis, right hand; M19.042 - Primary osteoarthritis, left hand Category: Medical Plan: Severe arthritis in the hands, he gets cortisone injections in his hands which do help relieve some of his pain and stiffness. Meloxicam was prescribed to manage inflammation and improve dexterity. (4) Tremor: Code(s): R25.1 - Tremor, unspecified Category: Medical Plan: The patient experiences a tremor primarily during activities such as eating, with no family history of Parkinson's disease. Medication was not deemed necessary unless the tremor worsens significantly. Orders: Orders Lipid Panel Today E78.2 - Mixed hyperlipidemia Microalbumin, Random (w Creat) Today I10 - Essential (primary) hypertension Comprehensive [place]. Panel Fast Today I10 - Essential (primary) hypertension Complete Blood Count no Diff Today I10 - Essential (primary) hypertension Prostate Specific Antigen Scr Today R80.9 - Proteinuria, unspecified, Z12.5 - Encounter for screening for malignant neoplasm of prostate Medications: New losartan 50 mg PO DAILY 90 tabs 1RF 90 days I10 - Essential (primary) hypertension meloxicam 15 mg PO DAILY 30 tabs 1RF 30 days M17.11 - Unilateral primary osteoarthritis, right knee Refilled sildenafil administer 30 minutes to 4 hours before activity 100 mg PO DAILY 10 tabs 1RF sexual activity 10 days N52.8 - Other male erectile dysfunction
== END 2024-12-15 08:38 | disposition home or self-care (01) ==
LOC: HO.HMCH 07:37
PROVIDERS: PCP Physician Assistant; Visit Provider Physician Assistant
DX: I10 Essential (primary) hypertension (principal); E78.2 Mixed hyperlipidemia; M19.041 Primary osteoarthritis, right hand; M19.042 Primary osteoarthritis, left hand; R25.1 Tremor, unspecified; Z00.00 Encounter for general adult medical examination without abnormal findings

== ENCOUNTER → 2024-12-15 07:37 | Outpatient (BNVA) | payer MEDICARE, SELFPAY | PROVIDERS: PCP Physician Assistant; Visit Provider Physician Assistant | DX: I10 Essential (primary) hypertension (principal); E78.2 Mixed hyperlipidemia; M19.041 Primary osteoarthritis, right hand; M19.042 Primary osteoarthritis, left hand; R25.1 Tremor, unspecified | CPT/HCPCS: 96127; 99397 ==